=== PATIENT | male | born 1965 | race Two or more races ===

== ENCOUNTER → 2024-01-21 | Outpatient (BNVA) | payer MEDICAID, SELFPAY | END | disposition home or self-care (01) | PROVIDERS: PCP Nurse Practitioner Family; Referring Provider Nurse Practitioner Family; Visit Provider Urology | DX: C64.1 Malignant neoplasm of right kidney, except renal pelvis (principal); Z90.5 Acquired absence of kidney; N40.1 Benign prostatic hyperplasia with lower urinary tract symptoms; N13.8 Other obstructive and reflux uropathy; I10 Essential (primary) hypertension | CPT/HCPCS: 81003; 99212; G0463 ==

== ENCOUNTER → 2024-03-05 | Outpatient (CLI) | payer MEDICAID, SELFPAY ==
--- NOTE | 2024-03-05 15:00 | XR_ITS ---
Examination: CT chest, without intravenous contrast. Sagittal and coronal 2-D reconstructions. Exam date and time: March 05, 2024 1805 hours INDICATIONS: Diagnosis renal cell carcinoma September 2023, PET CT scan December 19, 2023 small pulmonary nodules left upper lobe CTDI:vol (mGy) 12.2 DLP: (mGycm) 470 Technique: Multiple 3.0 mm axial sections of the chest to been obtained. Bone and lung density settings are obtained. Sagittal and coronal 2-D reconstructions have been obtained. Low dose protocols were performed. One or more of the following dose reduction techniques were used; automated exposure control, adjustment of the mA and/or KV according to patient size, use of iterative reconstruction technique. Findings: No thoracic aortic aneurysm dilatation Pulmonary artery segments are not enlarged No paratracheal tracheobronchial or bronchopulmonary adenopathy 3 mm pulmonary nodule left upper lobe image 106 3 mm pulmonary nodule left upper lobe image 4 2 mm pulmonary nodule left upper lobe image 150 3 mm pulmonary nodule right upper lobe image 158 3 mm pulmonary nodule right midlung image 158 3 mm pulmonary nodule left lower lobe image 257 No lobar pneumonia or pulmonary edema No visualized liver or splenic lesion Contracted gallbladder Kidneys partially visualized no hydronephrosis No pancreatic mass Moderate osteopenia with moderate thoracic spondylosis IMPRESSION: Multiple subcentimeter pulmonary nodules as above, with this study as baseline recommend continued 6 month follow-up CT chest without contrast
== END | disposition home or self-care (01) ==
PROVIDERS: PCP Internal Medicine; Referring Provider Internal Medicine; Visit Provider Internal Medicine
DX: R91.8 Other nonspecific abnormal finding of lung field (principal)
CPT/HCPCS: 71250

== ENCOUNTER → 2024-03-19 | Outpatient (CLI) | payer MEDICAID, SELFPAY ==
--- NOTE | 2024-03-19 14:00 | XR_ITS ---
Examination: Abdomen sonogram, complete Date and time of exam: March 19, 2024 1454 hours INDICATIONS: History removal right kidney mass one month ago, left flank pain one month, hematuria. Technique: Multiple real-time grayscale transabdominal sonographic images of the abdomen have been obtained. Findings: Normal gallbladder Normal common bile duct 0.3 cm Pancreatic head 3.1 cm Aorta not enlarged Hepatomegaly 18.5 cm smooth contour Normal hepatopedal portal venous flow Patent IVC Right kidney 12.4 x 7.1 x 7.0 cm cortex 1.6 cm Left kidney 12.5 x 5.7 x 5.9 cm cortex 2.4 cm Multiple left renal cysts, the largest lower pole 5.8 cm Bilateral renal parenchymal scar formation No solid renal mass lesion Spleen 10.9 cm IMPRESSION: No solid renal mass lesion noted
--- NOTE | 2024-03-19 14:30 | XR_ITS ---
Examination: Retroperitoneal ultrasound, complete Technique: Multiple high resolution grayscale images of the retroperitoneum obtained, including kidneys and bladder. Exam date and time:March 19, 2024 1436 hours INDICATIONS: Left flank pain and hematuria beginning one month ago FINDINGS: Right kidney 13.7 x 6.5 x 6.6 cm renal cortex 1.7 cm Left kidney 12.2 x 7.0 x 5.2 cm in the cortex 2.0 cm Multiple benign left renal cysts, the largest 5.6 cm Moderate bilateral renal parenchymal scar formation No bladder mass or bladder calculi Bladder prevoid volume 108 cc postvoid volume 60 cc Prostate volume 29.5 cc no prostate nodules IMPRESSION: No solid renal mass lesion currently Moderate bilateral renal parenchymal scar formation
== END | disposition home or self-care (01) ==
LOC: CDIM 13:42
PROVIDERS: PCP Nurse Practitioner Family; Referring Provider Nurse Practitioner Family; Visit Provider Nurse Practitioner Family
DX: N28.89 Other specified disorders of kidney and ureter (principal); R10.32 Left lower quadrant pain
CPT/HCPCS: 76700; 76770

== ENCOUNTER 2024-03-25 11:36 | Outpatient (RCR) | payer MEDICAID, SELFPAY ==
--- NOTE | 2024-03-10 13:35 | CTCCONSULT_ITS ---
Patient: WON PRIDE : 1965 MR#: [id number] Page 2 of 2 CONSULTATION NOTE DATE OF CONSULTATION: 03/10/2024 NAME: WON PRIDE ACCOUNT: [id number] : 1965 AGE: 58 REFERRING PHYSICIAN: Twila Joe MD PRIMARY PHYSICIAN: Twila Joe MD REASON FOR VISIT: Establishing care ONCOLOGY HISTORY: DIAGNOSIS: Renal cell cancer DATE OF DIAGNOSIS: 08/27/2023 STAGE/TNM: Unknown TREATMENT HISTORY: Care?Plan Start?Date Cycle Day Intent HISTORY OF PRESENT ILLNESS: 58-year-old male is here to establish care. Patient had ultrasound in August 2023 which showed renal m ass in the right kidney lower pole. MRI showed 2.8 cm enhancing mass. As per family he has undergon e partial nephrectomy PET CT scan done on 12/19/2023 showed small pulmonary nodules left upper lobe l argest 4 mm recommended high-resolution CT CT scan done on 12/24/2023 of abdomen and pelvis showed no lymphadenopathy CT scan in February 2024 showed multiple lung nodules all less than 5 mm in bilateral lungs I do not have final pathology report. Operative report reviewed showed 3 cm anterior midpole right r enal mass partially exophytic and abutting the collecting system and therefore central 1 renal artery 1 renal vein. 85% of the kidney was preserved. OTHER MEDICAL HISTORY/CONDITIONS: ASTHMA? HYPERTENSION RIGHT KIDNEY MASS PARTIAL NEPHRECTOMY 12/2023 NASAL SURGERY HERNIA SURGERY 2016 LEFT KNEE SX 2015 FAMILY HISTORY: Father:?DENIES Mother:?DENIES Sibling:?DENIES Children: DENIES, HAS 2 SONS AND 1 DAUGHTER Cancer History:?RIGHT KIDNEY MASS REMOVED 12/2023 SOCIAL HISTORY: Occupational?History:?[employer] Education?Level:?College Graduate, 2 year degree Marital?Status:? Tobacco?Use?Years:?15 Tobacco Use:?STOPPED SMOKING 20 YEARS AGO, 1/2 PACK CIGARETTES PER DAY ETOH?Use:?OCCASIONAL?ALCOHOL Drug?Note:?DENIES Social History Note:?LIVES WITH AND KIDS MEDICATIONS: 1. lisinopril-hydrochlorothiazide - 20-25 mg 1 tab Daily 2. Spiriva Respimat - 1.25 mcg/actuation 2 Puff(s) Daily 3. Symbicort - 160-4.5 mcg/actuation 2 Puff(s) Daily 4. Xhance - 93 mcg/actuation 2 spray As directed Medications Last Reconciled by Earlene Alves MD on 03/10/2024 ALLERGIES: No Known Allergies REVIEW OF SYSTEMS: A complete 14-point review of systems was performed and is negative except as noted in interval histo ry. PHYSICAL EXAMINATION: VITAL SIGNS: Temperature?98.6, B/P?169/93, Height?65?inches, Oxygen?Saturation?98% Weight?200?lbs PAIN: 0 - No pain ECOG Performance Status: 0 - Asymptomatic and fully active GENERAL APPEARANCE: Appears well, in no apparent distress, appropriately interactive. HEENT: Normocephalic, no temporal wasting, normal conjunctiva, no scleral icterus, normal hearing, li ps without lesions, neck normal range of motion. CARDIOVASCULAR: Not assessed. PULMONARY: Normal respiratory effort, no respiratory distress or use of accessory muscles, speaking i n full sentences, no tachypnea. EXTREMITIES: No pedal edema or cyanosis. SKIN: Normal skin appearance. NEUROLOGIC: Alert and oriented x4. PSHYCHIATRIC: Appropriate affect, mood normal, behavior normal, intact thought and speech. LABORATORY DATA: I have personally reviewed and interpreted each of the patient?s relevant lab tests, abnormal finding s are below: Date ASSESSMENT/PLAN: Right renal tumor s/p resection Will need final pathology report to see the margins as well as the type of tumor At this point I am not clear whether lung nodules are new or or they were present before Will try to obtain CT scan from [facility] at the initial visit to see if the new nodule seen on e scan here are new or order Remote history of smoking Brain MRI RTC in 2 weeks with records ORDERS: Please obtain records RETURN TO CLINIC: 2 weeks BILLING AND COMPLIANCE: I reviewed external records from providers outside my specialty as summarized above. I spent a total of 50 minutes on this patient?s care on the day of their visit excluding time spent related to any bi lled procedures. This time includes time spent with the patient as well as time spent documenting in the medical record, reviewing patients records and tests, obtaining history, placing orders, communi cating with other healthcare professionals, counseling the patient, family or caregiver, and/or care coordination for the diagnoses above. Electronically Signed by: Zeferino Slaughter MD T: 1:33 PM CC: PCP: Twila Joe Referring: Twila Joe This document was completed utilizing speech recognition software. Grammatical errors, random word in sertions, pronoun errors, and incomplete sentences are an occasional consequence of this system due t o software limitations, ambient noise, and hardware issues. Any formal questions or concerns about th e content, text or information contained within the body of this dictation should be directly address ed to the provider for clarification.
--- NOTE | 2024-03-26 13:24 | CTCFLWUP_ITS ---
Patient: WON PRIDE : 1965 Page 2 of 2 FOLLOW UP NOTE DATE OF SERVICE: 03/25/2024 NAME: WON PRIDE ACCOUNT: [id number] : 1965 AGE: 58 INTERVAL HISTORY: Patient is here to discuss pathology report ONCOLOGY HISTORY:?[facility] Oncology Hx? DIAGNOSIS: Renal cell cancer DATE OF DIAGNOSIS: 08/27/2023 STAGE/TNM: Stage III T3 N0 M0 TREATMENT HISTORY: Care?Plan Start?Date Cycle Day Intent HISTORY OF PRESENT ILLNESS: 58-year-old male is here to establish care. Patient had ultrasound in August 2023 which showed renal mass in the right kidney lower pole. MRI showed 2.8 cm enhancing mass. As per family he has undergone partial nephrectomy PET CT scan done on 12/19/2023 showed small pulmonary nodules left upper lobe largest 4 mm recommended high-resolution CT CT scan done on 12/24/2023 of abdomen and pelvis showed no lymphadenopathy CT scan in February 2024 showed multiple lung nodules all less than 5 mm in bilateral lungs I do not have final pathology report. Operative report reviewed showed 3 cm anterior midpole right renal mass partially exophytic and abutting the collecting system and therefore central 1 renal artery 1 renal vein. 85% of the kidney was preserved. OTHER MEDICAL HISTORY/CONDITIONS: ASTHMA HYPERTENSION RIGHT KIDNEY MASS PARTIAL NEPHRECTOMY 12/2023 NASAL SURGERY HERNIA SURGERY 2016 LEFT KNEE SX 2014 FAMILY HISTORY: Father:?DENIES Mother:?DENIES Sibling:?DENIES Children: DENIES, HAS 2 SONS AND 1 DAUGHTER Cancer History:?RIGHT KIDNEY MASS REMOVED 12/2023 SOCIAL HISTORY: Occupational?History:?[employer] Education?Level:?College Graduate, 2 year degree Marital?Status:? Tobacco?Use?Years:?15 Tobacco Use:?STOPPED SMOKING 20 YEARS AGO, 1/2 PACK CIGARETTES PER DAY ETOH?Use:?OCCASIONAL?ALCOHOL Drug?Note:?DENIES Social History Note:?LIVES WITH AND KIDS MEDICATIONS: 1. amoxicillin - 500 mg 1 Capsule As directed 2. lisinopril-hydrochlorothiazide - 20-25 mg 1 tab Daily 3. pantoprazole - 40 mg 1 Daily 4. Spiriva Respimat - 1.25 mcg/actuation 2 Puff(s) Daily 5. Symbicort - 160-4.5 mcg/actuation 2 Puff(s) Daily 6. Xhance - 93 mcg/actuation 2 spray As directed?Palabra Meds? Medications Last Reconciled by Domonique Duque MA on 03/25/2024 ALLERGIES: No Known Allergies REVIEW OF SYSTEMS: A complete 14-point review of systems was performed and is negative except as noted in interval history. PHYSICAL EXAMINATION:?Miguelina PE? VITAL SIGNS: Temperature?98.6, B/P?136/83, Oxygen?Saturation?98% Weight?202?lbs (Change?since?03/10/24:?2?lbs) PAIN: 0 - No pain ECOG Performance Status: 0 - Asymptomatic and fully active GENERAL APPEARANCE: Appears well, in no apparent distress, appropriately interactive. HEENT: Normocephalic, no temporal wasting, normal conjunctiva, no scleral icterus, normal hearing, lips without lesions, neck normal range of motion. CARDIOVASCULAR: Not assessed. PULMONARY: Normal respiratory effort, no respiratory distress or use of accessory muscles, speaking in full sentences, no tachypnea. EXTREMITIES: No pedal edema or cyanosis. SKIN: Normal skin appearance. NEUROLOGIC: Alert and oriented x4. PSHYCHIATRIC: Appropriate affect, mood normal, behavior normal, intact thought and speech. LABORATORY DATA: I have personally reviewed and interpreted each of the patient?s relevant lab tests, abnormal findings are below: Date ASSESSMENT/PLAN:?Miguelina Slaughter Assessment/Plan? 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 BILLING AND COMPLIANCE: I reviewed external records from providers outside my specialty as summarized above. I spent a total of 50 minutes on this patient?s care on the day of their visit excluding time spent related to any billed procedures. This time includes time spent with the patient as well as time spent documenting in the medical record, reviewing patients records and tests, obtaining history, placing orders, communicating with other healthcare professionals, counseling the patient, family or caregiver, and/or care coordination for the diagnoses above. Electronically Signed by: Zeferino Slaughter MD T: 1:22 PM CC: PCP: Twila Joe Referring: Twila Joe This document was completed utilizing speech recognition software. Grammatical errors, random word insertions, pronoun errors, and incomplete sentences are an occasional consequence of this system due to software limitations, ambient noise, and hardware issues. Any formal questions or concerns about the content, text or information contained within the body of this dictation should be directly addressed to the provider for clarification.
== END 2024-03-27 23:59 | disposition home or self-care (01) ==
LOC: SCTC 11:36
PROVIDERS: PCP Nurse Practitioner Family; Referring Provider Nurse Practitioner Family; Visit Provider Internal Medicine Hematology & Oncology
DX: C64.1 Malignant neoplasm of right kidney, except renal pelvis (principal); Z90.5 Acquired absence of kidney; Z87.891 Personal history of nicotine dependence; R91.8 Other nonspecific abnormal finding of lung field
CPT/HCPCS: 99212; 99213; G0463

== ENCOUNTER 2024-04-16 10:05 | Outpatient (RCR) | payer MEDICAID, SELFPAY ==
[2024-04-16 10:40] LABS: Basophils # (Auto) 0.1 Thou/mm3 (0.0-0.2); Basophils % (Auto) 1 % (0-2.5); Eosinophils # (Auto) 0.3 Thou/mm3 (0.0-0.5); Eosinophils % (Auto) 5 % (0-10); Hemoglobin 15.6 g/dL (13.5-16.0); Immature Granulocytes % (Auto) 0 % (0-0); Immature Granulocytes Auto 0.01 Thou/mm3 (0.00-0.00); Lymphocytes # (Auto) 2.3 Thou/mm3 (1.0-4.8); Lymphocytes % (Auto) 33 % (10-50); Mean Corpuscular HGB Conc 33.2 g/dl (31.0-37.0); Mean Corpuscular Hemoglobin 26.5 pg (25.0-35.0); Mean Corpuscular Volume 80 fL (80-100); Monocytes # (Auto) 0.5 Thou/mm3 (0.0-0.8); Monocytes % (Auto) 7 % (0-12); Neutrophils # (Auto) 3.7 Thou/mm3 (1.8-7.7); Neutrophils % (Auto) 54 % (37-80); Nucleated Red Blood Cell % 0 /100 WBC (0); Platelet Count 321 Thou/mm3 (140-440); RDW Standard Deviation 39.7 fL (35.1-43.9); Red Blood Count 5.88 Miln/mm3 (4.50-5.90); White Blood Count 6.9 Thou/mm3 (3.8-10.6)
[2024-04-16 10:59] LABS: Alanine Aminotransferase 15 U/L (10-49); Albumin, Serum 4.3 gm/dL (3.5-5.0); Albumin/Globulin Ratio 1.8 (1.2-2.2); Alkaline Phosphatase 59 U/L (46-116); Anion Gap 9 (7-16); Aspartate Amino Transferase 18 U/L (0-34); BUN/Creatinine Ratio 18 Ratio (12-20); Bilirubin,Total 0.7 mg/dL (0.3-1.2); Blood Urea Nitrogen 18 mg/dL (9-23); Calcium 9.5 mg/dL (8.3-10.6); Calcium (Corrected) 9.5 mg/dL (8.5-10.1); Carbon Dioxide 26.4 mMol/L (20.0-31.0); Chloride 105 mMol/L (98-107); Free T4 (Free Thyroxine) 1.31 ng/dL (0.89-1.76); Globulin 2.4 gm/dL (2.3-3.5); Glucose 129 mg/dL (74-106); Osmolality,Calculated 283 (275-295); Potassium 3.6 mMol/L (3.4-5.1); Sodium 140 mMol/L (136-145); Thyroid Stimulating Hormone 0.55 uIU/mL (0.55-4.78); Total Protein 6.7 gm/dL (5.7-8.2); eGFR > 60 See Note
--- NOTE | 2024-04-26 11:55 | CTCFLWUP_ITS ---
Patient: WON PRIDE : 1965 Page 2 of 4 FOLLOW UP NOTE DATE OF SERVICE: 04/07/2024 NAME: WON PRIDE ACCOUNT: [id number] : 1965 AGE: 59 INTERVAL HISTORY: Patient is here to discuss pathology report ONCOLOGY HISTORY:?[facility]one[facility] Oncology Hx? DIAGNOSIS: Renal cell cancer DATE OF DIAGNOSIS: 08/27/2023 STAGE/TNM: Stage III T3 N0 M0 TREATMENT HISTORY: Care?Plan Start?Date Cycle Day Intent KEYTRUDA?200 04/16/2024 1 21 Curative?(adjuvant) HISTORY OF PRESENT ILLNESS: 59-year-old male is here to establish care. Patient had ultrasound in August 2023 which showed renal mass in the right kidney lower pole. MRI showed 2.8 cm enhancing mass. As per family he has undergone partial nephrectomy PET CT scan done on 12/19/2023 showed small pulmonary nodules left upper lobe largest 4 mm recommended high-resolution CT CT scan done on 12/24/2023 of abdomen and pelvis showed no lymphadenopathy CT scan in February 2024 showed multiple lung nodules all less than 5 mm in bilateral lungs I do not have final pathology report. Operative report reviewed showed 3 cm anterior midpole right renal mass partially exophytic and abutting the collecting system and therefore central 1 renal artery 1 renal vein. 85% of the kidney was preserved. OTHER MEDICAL HISTORY/CONDITIONS: ASTHMA HYPERTENSION RIGHT KIDNEY MASS PARTIAL NEPHRECTOMY 12/2023 NASAL SURGERY HERNIA SURGERY 2016 LEFT KNEE SX 2014 FAMILY HISTORY: Father:?DENIES Mother:?DENIES Sibling:?DENIES Children: DENIES, HAS 2 SONS AND 1 DAUGHTER Cancer History:?RIGHT KIDNEY MASS REMOVED 12/2023 SOCIAL HISTORY: Occupational?History:?[employer] Education?Level:?College Graduate, 2 year degree Marital?Status:? Tobacco?Use?Years:?15 Tobacco Use:?STOPPED SMOKING 20 YEARS AGO, 1/2 PACK CIGARETTES PER DAY ETOH?Use:?OCCASIONAL?ALCOHOL Drug?Note:?DENIES Social History Note:?LIVES WITH AND KIDS MEDICATIONS: 1. amoxicillin - 500 mg 1 Capsule As directed 2. lisinopril-hydrochlorothiazide - 20-25 mg 1 tab Daily 3. pantoprazole - 40 mg 1 Daily 4. Spiriva Respimat - 1.25 mcg/actuation 2 Puff(s) Daily 5. Symbicort - 160-4.5 mcg/actuation 2 Puff(s) Daily 6. Xhance - 93 mcg/actuation 2 spray As directed?Palabra Meds? Medications Last Reconciled by Domonique Duque MA on 04/07/2024 ALLERGIES: No Known Allergies REVIEW OF SYSTEMS: A complete 14-point review of systems was performed and is negative except as noted in interval history. PHYSICAL EXAMINATION:?CloneBlock PE? VITAL SIGNS: Temperature?98.6, B/P?133/87, Oxygen?Saturation?95% Weight?198?lbs (Change?since?03/25/24:?-4?lbs) PAIN: 0 - No pain GENERAL APPEARANCE: Appears well, in no apparent distress, appropriately interactive. HEENT: Normocephalic, no temporal wasting, normal conjunctiva, no scleral icterus, normal hearing, lips without lesions, neck normal range of motion. CARDIOVASCULAR: Not assessed. PULMONARY: Normal respiratory effort, no respiratory distress or use of accessory muscles, speaking in full sentences, no tachypnea. EXTREMITIES: No pedal edema or cyanosis. SKIN: Normal skin appearance. NEUROLOGIC: Alert and oriented x4. PSHYCHIATRIC: Appropriate affect, mood normal, behavior normal, intact thought and speech. LABORATORY DATA: I have personally reviewed and interpreted each of the patient?s relevant lab tests, abnormal findings are below: Date 04/16/24 ??GLUCOSE,RANDOM?(mg/dL) 129?H ??BLOOD?UREA?NITROGEN?(mg/dL) 18 ??CREATININE?(mg/dL) 1.00 ??SODIUM?(mmol/L) 140 ??POTASSIUM?(mmol/L) 3.6 ??CHLORIDE?(mmol/L) 105 ??CrCl?(CandG)?(ml/min) 83.27 ??AST/SGOT?(Unit/L) 18 ??ALT/SGPT?(Unit/L) 15 ??ALKALINE?PHOSPHATASE?(Unit/L) 59 ??BILIRUBIN,?TOTAL?(mg/dL) 0.7 ??PROTEIN?TOTAL?(gm/dl) 6.7 ??ALBUMIN,?SERUM?(gm/dl) 4.3 ??GLOBULIN?(gm/dl) 2.4 ??ALBUMIN/GLOBULIN?RATIO 1.8 ??CALCIUM,?SERUM?(mg/dL) 9.5 ??CALCIUM?SERUM?(CORRECTED)?(mg/dL) 9.5 ASSESSMENT/PLAN:?Miguelina Slaughter Assessment/Plan? 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 BILLING AND COMPLIANCE: I reviewed external records from providers outside my specialty as summarized above. I spent a total of 50 minutes on this patient?s care on the day of their visit excluding time spent related to any billed procedures. This time includes time spent with the patient as well as time spent documenting in the medical record, reviewing patients records and tests, obtaining history, placing orders, communicating with other healthcare professionals, counseling the patient, family or caregiver, and/or care coordination for the diagnoses above. Electronically Signed by: Zeferino Slaughter MD T: 11:52 AM CC: PCP: Twila Jeo Referring: Twila Joe This document was completed utilizing speech recognition software. Grammatical errors, random word insertions, pronoun errors, and incomplete sentences are an occasional consequence of this system due to software limitations, ambient noise, and hardware issues. Any formal questions or concerns about the content, text or information contained within the body of this dictation should be directly addressed to the provider for clarification.
== END 2024-04-24 23:59 | disposition home or self-care (01) ==
LOC: SCTC 10:05
PROVIDERS: PCP Nurse Practitioner Family; Referring Provider Nurse Practitioner Family; Visit Provider Internal Medicine Hematology & Oncology
DX: Z51.11 Encounter for antineoplastic chemotherapy (principal); C64.1 Malignant neoplasm of right kidney, except renal pelvis; Z90.5 Acquired absence of kidney
CPT/HCPCS: 80053; 84439; 84443; 85025; 96413; 99212; A4216; J7040; J7050; J9271; G0463

== ENCOUNTER → 2024-04-21 | Outpatient (CLI) | payer MEDICAID, SELFPAY ==
--- NOTE | 2024-04-21 14:00 | XR_ITS ---
Examination: CT chest with intravenous contrast CT abdomen with intravenous contrast CT pelvis with intravenous contrast CT chest without intravenous contrast CTA abdomen without intravenous contrast CT pelvis without intravenous contrast 2-D coronal and sagittal reconstructions Time of exam: April 21, 2024 1515 hrs. Indications: Diagnosis malignant neoplasm right kidney September 2023 CTDI: vol (mGy) : 25.99 DLP: (mGycm): 14.99 Technique: Multiple axial images of the chest, abdomen and pelvis with intravenous contrast, 3.0 mm slice thickness. Images obtained pre-post intravenous injection Isovue 370 60 cc. 2-D sagittal and coronal reconstructions. Low dose protocols were performed. One or more of the following dose reduction techniques were used; automated exposure control, adjustment of the mA and/or KV according to patient size, use of iterative reconstruction technique. Findings: No thoracic aortic aneurysm dilatation No pulmonary artery emboli No paratracheal tracheobronchial or bronchopulmonary adenopathy Bilateral pulmonary nodules again noted 1 pulmonary nodules in the left upper lobe measures 6 mm on the current study compared to 4 mm on the prior exam 1 pulmonary nodules in the right lower lobe measures 4 mm compared to 3 mm on the prior study No visualized liver or splenic lesion Contracted gallbladder No pancreatic mass Post right nephrectomy no solid enhancing renal lesions No interval abdominal or pelvic lymphadenopathy Urinary bladder intact Osseous structures intact Impression: Bilateral pulmonary nodules again noted 2 of the pulmonary nodules appear to have slightly increased in size compared to the CT chest March 05, 2024, recommend 3 month follow-up CT chest without contrast
== END | disposition home or self-care (01) ==
PROVIDERS: PCP Physician Assistant; Referring Provider Internal Medicine Hematology & Oncology; Visit Provider Internal Medicine Hematology & Oncology
DX: R91.8 Other nonspecific abnormal finding of lung field (principal); C64.1 Malignant neoplasm of right kidney, except renal pelvis
CPT/HCPCS: 71270; 74178; A4649; Q9967

== ENCOUNTER → 2024-05-14 | Outpatient (CLI) | payer MEDICAID, SELFPAY ==
--- NOTE | 2024-05-14 15:12 | XR_ITS ---
Examination: PA lateral chest 2 views TECHNIQUE: Upright PA lateral chest 2 views Exam date and time: May 14, 2024 1534 hours INDICATIONS: Shortness of breath wheezing beginning 2 weeks ago FINDINGS: Minor subsegmental atelectasis left base No lobar pneumonia or pulmonary edema Moderate thoracic spondylosis IMPRESSION: No pneumonia or pulmonary edema
== END | disposition home or self-care (01) ==
PROVIDERS: PCP Nurse Practitioner Family; Referring Provider Nurse Practitioner Family; Visit Provider Nurse Practitioner Family
DX: R06.02 Shortness of breath (principal); R06.2 Wheezing; C64.1 Malignant neoplasm of right kidney, except renal pelvis
CPT/HCPCS: 71046

== ENCOUNTER 2024-05-25 13:03 | Outpatient (RCR) | payer MEDICAID, SELFPAY | END 2024-05-25 23:59 | disposition home or self-care (01) | LOC: SCTC 13:03 | PROVIDERS: PCP Physician Assistant; Referring Provider Physician Assistant; Visit Provider Internal Medicine Hematology & Oncology | DX: C64.1 Malignant neoplasm of right kidney, except renal pelvis (principal); Z53.8 Procedure and treatment not carried out for other reasons | CPT/HCPCS: 84439; 84443; J7050; J9271 ==

== ENCOUNTER 2024-05-25 13:57 | Emergency (ER) | payer MEDICAID, SELFPAY ==
[2024-05-25] VITALS (8 sets, daily range): BP systolic 147–155; BP diastolic 84–105; PULSE 64–74; RESP 12–21; TEMP 36.8–36.9; O2SAT 90–95; BMI 32.5
--- NOTE | 2024-05-25 14:15 | EKG_ITS ---
[facility] Test Date: 2024-05-25 Pat Name: WON PRIDE Department: Room: - Gender: Male Case Management Social Worker: : 1965 Requested By: Alesha Cota Order Number: [id number] Reading MD: Alesha Cota Measurements Intervals [place] Rate: 60 P: 49 [place]: 172 QRS: -2 QRSD: 83 T: 53 QT: 391 QTc: 393 Interpretive Statements SINUS RHYTHM No previous ECG available for comparison /store/S0/[id number]/ecg/[id number]
--- NOTE | 2024-05-25 14:15 | PD.EDSOB ---
ED SOB =RME/HPI General Chief Complaint: Shortness of Breath/Dyspnea Stated Complaint: SOB WITH CHEST PAIN AND COUGH X3WK Time Seen by Provider: 05/25/24 14:14 Arrival date/time: 05/25/24 13:57 RME / HPI RME / HPI Narrative: 59 y/o male with H/o stage III papillary renal cell carcinoma, hypertension, asthma and SHx large mass removal of the kidney presents to ED transferred from [facility] c/o constant shortness of breath, mild chest pain, and coughing up clear mucus x 2 weeks. Patient reports symptoms are worse this week. Patient is currently undergoing immunotherapy. Tumor removal performed 01/14/2024. Denies swelling or any modifying factors. No other concerns or complaints expressed at this time. Related Data Home Medications ?Medication ?Instructions ?Recorded ?Confirmed albuterol sulfate 90 mcg/actuation 2 puff inhalation QDAY PRN 11/21/23 01/21/24 aerosol inhaler budesonide-formoterol HFA 160 2 puff inhalation QDAY 11/21/23 01/21/24 mcg-4.5 mcg/actuation aerosol inhaler (Symbicort) lisinopril 20 1 tab PO QDAY 11/21/23 01/21/24 mg-hydrochlorothiazide 25 mg tablet Previous Rx's ?Medication ?Instructions ?Recorded azithromycin 250 mg tablet 250 mg PO QDAY 4 days #4 tabs 05/25/24 Allergies Allergy/AdvReac Type Severity Reaction Status Date / Time No Known Allergies Allergy Verified 05/25/24 13:59 Review of Systems Review of Systems Systems Reviewed: All systems reviewed, normal except as documented Narrative Review of Systems: Gen: No fever, no chills, no weight loss EYES: No discharge, no visual changes, no pain HEENT: No ear pain, no congestion, no sore throat PULM: + Shortness of breath, + cough, + coughing up clear phlegm CV: + Mild chest pain, no dyspnea on exertion, no palpitations GI: No nausea, no vomiting, no diarrhea, no pain, no constipation : No frequency, no urgency,? no dysuria Musc/skel: No joint pain, no back pain Skin: No rash? 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 alert and oriented x 4, well-developed, well-nourished, no acute distress HEENT: Normocephalic, atraumatic; pupils equal, round, reactive to light; EOMI; mucous membranes pink, moist; oropharynx clear NECK: Supple LUNGS: + Mild wheezes in LI, Right lung clear, no rales BL, no rhonchi BL HEART: Regular rate, regular rhythm; normal S1, S2; no murmurs ABDOMEN: non distended; normal BS;? soft, no tenderness, no guarding, no rebound; no masses, no organomegaly, no hernia?? BACK:? No CVA tenderness EXTREMITIES:? atraumatic; no edema NEUROLOGIC: awake; alert and oriented x4; cranial nerves II-XII grossly intact; no focal sensory or motor deficits PSYCHIATRIC:? appropriate mood and affect SKIN: warm, dry, normal color; no rashes Course Quality Measures none Orders Category Date Time Status Tool Grinder Operator NOW Care 05/25/24 14:15 Active EKG (ED ONLY) *Do not use* NOW Care 05/25/24 14:15 Completed EKG (ED Only) Stat Exams 05/25/24 14:15 Draft XR chest 1V portable Stat Exams 05/25/24 14:15 Completed B-Type Natriuretic Peptide Stat Lab 05/25/24 14:31 Completed CBC Stat Lab 05/25/24 14:31 Completed Comprehensive Metabolic Panel Stat Lab 05/25/24 14:31 Completed D-Dimer Stat Lab 05/25/24 14:31 Completed Lipase Stat Lab 05/25/24 14:31 Completed Magnesium Stat Lab 05/25/24 14:31 Completed Partial Thromboplastin Time Stat Lab 05/25/24 14:31 Completed Prothrombin Time with INR Stat Lab 05/25/24 14:31 Completed Troponin I Stat Lab 05/25/24 14:31 Completed Albuterol/Ipratr Rt Serina [Duoneb Rt Serina] Med 05/25/24 15:02 Discontinued 3 ml INH X1 ONE Azithromycin Po [Zithromax PO] Med 05/25/24 16:37 Discontinued 500 mg PO X1 ONE Vital Signs Vital signs: Vital Signs Temperature 98.2 F 05/25/24 14:15 Pulse Rate 70 05/25/24 14:15 Respiratory Rate 18 05/25/24 14:15 Blood Pressure 153/84 H 05/25/24 14:15 Pulse Oximetry (%) 90 L 05/25/24 14:15 Oxygen Delivery Method Room Air 05/25/24 14:15 Shortness of Breath / Dyspnea MDM Narrative MDM Narrative:: Augusta Garza, am scribing for and in the presence of Dr. Linda. Patient data External records reviewed:: [facility] previous records (Reviewed most recent oncology follow-up note from 04/26/[address] Zeferino Slaughter.) Clinical information provided by:: patient and family (Daughter) Social determinants that could affect healthcare access:: none Patient has the following chronic illnesses:: Stage III papillary renal cell carcinoma, hypertension, asthma How is presenting disease/condition affected by chronic disease/condition?: exacerbated by Evaluation data The following diagnostics were reviewed and interpreted by me:: lab results, radiology exam(s) and EKG tracing(s) (EKG#1: EKG at 1701 hours. Interpreted by me: sinus rhythm, rate 60, no acute ischemic changes) Lab and/or radiology exams considered but not ordered:: None Interpretation Summary: Procedure(s): XR chest 1V portable Accession Number(s): [id number] cc: Nick Villafana MD; Alesha Linda MD~ Examination: AP chest single view Technique one AP portable upright chest single view Exam date and time: May 25, 2024 1421 hours INDICATIONS: Chest pain today FINDINGS: Normal heart size Accentuation basilar bronchovascular markings. No lobar pneumonia Prominent osteopenia IMPRESSION: Basilar bronchitis pattern Dictated By: Nick Villafana MD Medications / Prescriptions Medications or Prescriptions considered but not ordered:: None Medication administrations:: Medication Administration History Discontinued Medications Albuterol/Ipratropium (Albuterol/Ipratropium (Duoneb) Rt Serina 3 Ml Nebu) 3 ml INH X1 ONE Stop: 05/25/24 15:03 Last Admin: 05/25/24 15:25 Dose: 3 ml Documented By: KOKO Azithromycin (Azithromycin 250 Mg Tablet) 500 mg PO X1 ONE Stop: 05/25/24 16:38 Last Admin: 05/25/24 16:48 Dose: 500 mg Documented By: ALLISON See above. Consultations Consultation(s) initiated? (list below): No Diagnosis Shortness of Breath Differential Diagnosis: community acquired pneumonia, asthma with exacerbation and pulmonary embolism Most likely diagnosis given after review of the tests above:: Bronchitis Admission Indicated Admission indicated?: not indicated Admission Request Was there a request for admission?: No Disposition Plan Disposition Plan: Discharge Discharge Attestation Discharge Attestation: The patient and all family members were given an opportunity to ask questions and understood the discharge instructions. Discharge instructions specifically effects, indications for sooner follow up or return to the emergency department, and the expected course of current diagnosis. Patient condition: Stable Discharge Plan Plan Patient Disposition: HOME (Self Care) Prescriptions/Referrals Prescriptions/Med Rec: New azithromycin 250 mg tablet 250 mg PO QDAY 4 Days Qty: 4 0RF Rx Instructions: start on day 2 of therapy No Action lisinopril-hydrochlorothiazide 20-25 mg tablet 1 tab PO QDAY albuterol sulfate 90 mcg/actuation HFA aerosol inhaler 2 puff inhalation QDAY PRN budesonide-formoterol [Symbicort] 160-4.5 mcg/actuation HFA aerosol inhaler 2 puff inhalation QDAY Referrals: Ramsey Roman MD [Primary Care Provider] - In 1 week Problem List Clinical Impression: Bronchitis Patient/Caregiver Discharge Instructions Education Materials: ED Bronchitis with Wheezing (Adult) Print Language: Lao Stand Alone Forms: Marya Award Info., Patient Portal Info Letter
[2024-05-25 15:10] LABS: Basophils # (Auto) 0.1 Thou/mm3 (0.0-0.2); Basophils % (Auto) 1 % (0-2.5); Eosinophils # (Auto) 0.9 Thou/mm3 (0.0-0.5); Eosinophils % (Auto) 9 % (0-10); Hematocrit 51.5 % (41.0-53.0); Hemoglobin 16.4 g/dL (13.5-16.0); Immature Granulocytes % (Auto) 0 % (0-0); Immature Granulocytes Auto 0.02 Thou/mm3 (0.00-0.00); Lymphocytes # (Auto) 2.3 Thou/mm3 (1.0-4.8); Lymphocytes % (Auto) 23 % (10-50); Mean Corpuscular HGB Conc 31.8 g/dl (31.0-37.0); Mean Corpuscular Hemoglobin 26.1 pg (25.0-35.0); Mean Corpuscular Volume 82 fL (80-100); Monocytes # (Auto) 0.9 Thou/mm3 (0.0-0.8); Monocytes % (Auto) 9 % (0-12); Neutrophils # (Auto) 5.9 Thou/mm3 (1.8-7.7); Neutrophils % (Auto) 59 % (37-80); Nucleated Red Blood Cell % 0 /100 WBC (0); Platelet Count 328 Thou/mm3 (140-440); RDW Standard Deviation 40.7 fL (35.1-43.9); Red Blood Count 6.28 Miln/mm3 (4.50-5.90); White Blood Count 10.1 Thou/mm3 (3.8-10.6)
[2024-05-25 15:19] LABS: Partial Thromboplastin Time 25.8 Seconds (22.0-36.0); Prothrombin Time 10.9 Seconds (9.0-12.2)
[2024-05-25 15:23] LABS: B-Type Natriuretic Peptide 26 pg/mL (0-100)
--- NOTE | 2024-05-25 15:24 | PC.NURSE ---
patient able to void in urinal (500ml)
[2024-05-25] MEDS: ALBUTEROL/IPRATROPIUM (Duoneb) RT SOL 3 ML NEBU INH (15:25)
[2024-05-25 15:29] LABS: Alanine Aminotransferase 18 U/L (10-49); Albumin, Serum 4.5 gm/dL (3.5-5.0); Albumin/Globulin Ratio 1.7 (1.2-2.2); Alkaline Phosphatase 75 U/L (46-116); Anion Gap 9 (7-16); Aspartate Amino Transferase 19 U/L (0-34); BUN/Creatinine Ratio 17 Ratio (12-20); Bilirubin,Total 0.7 mg/dL (0.3-1.2); Blood Urea Nitrogen 17 mg/dL (9-23); Calcium 9.6 mg/dL (8.3-10.6); Calcium (Corrected) 9.6 mg/dL (8.5-10.1); Chloride 106 mMol/L (98-107); Estimated Creatinine Clearance 82.5 mL/min (>60); Globulin 2.6 gm/dL (2.3-3.5); Glucose 96 mg/dL (74-106); Lipase 42 U/L (12-53); Osmolality,Calculated 282 (275-295); Potassium 3.9 mMol/L (3.4-5.1); Sodium 141 mMol/L (136-145); Total Protein 7.1 gm/dL (5.7-8.2); Troponin I < 0.002 ng/mL (0.0-0.045); eGFR > 60 See Note
[2024-05-25 16:17] LABS: D-Dimer < 250 ng/mL (<600)
[2024-05-25] MEDS: AZITHROMYCIN 250 MG TABLET 500 MG PO (16:48)
== END 2024-05-25 17:10 | disposition home or self-care (01) ==
PROVIDERS: Emergency Provider Emergency Medicine; PCP Family Medicine
DX: J40 Bronchitis, not specified as acute or chronic (principal); I10 Essential (primary) hypertension; Z79.51 Long term (current) use of inhaled steroids
CPT/HCPCS: 36415; 71045; 80053; 83690; 83735; 83880; 84484; 85025; 85379; 85610; 85730; 93005; 94640; 99283; A9270

== ENCOUNTER → 2024-06-19 | Outpatient (BNVA) | payer MEDICAID, SELFPAY | END | disposition home or self-care (01) | PROVIDERS: PCP Nurse Practitioner Family; Referring Provider Nurse Practitioner Family; Visit Provider Urology | DX: C64.1 Malignant neoplasm of right kidney, except renal pelvis (principal); N40.1 Benign prostatic hyperplasia with lower urinary tract symptoms; N13.8 Other obstructive and reflux uropathy; I10 Essential (primary) hypertension; Z90.5 Acquired absence of kidney; E66.9 Obesity, unspecified; Z68.32 Body mass index [BMI] 32.0-32.9, adult | CPT/HCPCS: 81003; 99212; G0463 ==

== ENCOUNTER 2024-06-22 13:35 | Outpatient (RCR) | payer MEDICAID, SELFPAY ==
[2024-06-08 14:59] LABS: Basophils # (Auto) 0.1 Thou/mm3 (0.0-0.2); Basophils % (Auto) 1 % (0-2.5); Eosinophils # (Auto) 0.5 Thou/mm3 (0.0-0.5); Eosinophils % (Auto) 4 % (0-10); Hematocrit 47.4 % (41.0-53.0); Hemoglobin 15.7 g/dL (13.5-16.0); Immature Granulocytes % (Auto) 0 % (0-0); Immature Granulocytes Auto 0.02 Thou/mm3 (0.00-0.00); Lymphocytes # (Auto) 2.8 Thou/mm3 (1.0-4.8); Lymphocytes % (Auto) 25 % (10-50); Mean Corpuscular HGB Conc 33.1 g/dl (31.0-37.0); Mean Corpuscular Volume 82 fL (80-100); Monocytes % (Auto) 9 % (0-12); Neutrophils # (Auto) 6.9 Thou/mm3 (1.8-7.7); Neutrophils % (Auto) 61 % (37-80); Nucleated Red Blood Cell % 0 /100 WBC (0); Platelet Count 329 Thou/mm3 (140-440); RDW Standard Deviation 39.8 fL (35.1-43.9); Red Blood Count 5.81 Miln/mm3 (4.50-5.90); White Blood Count 11.3 Thou/mm3 (3.8-10.6)
[2024-06-08 15:17] LABS: Alanine Aminotransferase 13 U/L (10-49); Albumin, Serum 3.9 gm/dL (3.5-5.0); Alkaline Phosphatase 64 U/L (46-116); Anion Gap 7 (7-16); Aspartate Amino Transferase 14 U/L (0-34); BUN/Creatinine Ratio 23 Ratio (12-20); Bilirubin,Total 0.4 mg/dL (0.3-1.2); Blood Urea Nitrogen 23 mg/dL (9-23); Calcium 8.5 mg/dL (8.3-10.6); Calcium (Corrected) 8.6 mg/dL (8.5-10.1); Carbon Dioxide 25.9 mMol/L (20.0-31.0); Chloride 110 mMol/L (98-107); Glucose 143 mg/dL (74-106); Osmolality,Calculated 290 (275-295); Potassium 3.7 mMol/L (3.4-5.1); Sodium 143 mMol/L (136-145); Thyroid Stimulating Hormone 0.01 uIU/mL (0.55-4.78); Total Protein 5.9 gm/dL (5.7-8.2); eGFR > 60 See Note
[2024-06-08 16:44] LABS: Free T3 3.8 pg/mL (2.3-4.2)
[2024-06-08 18:28] LABS: Free T4 (Free Thyroxine) 1.54 ng/dL (0.89-1.76); Thyroid Stimulating Hormone 0.01 uIU/mL (0.55-4.78)
--- NOTE | 2024-06-23 01:13 | CTCFLWUP_ITS ---
Patient: WON PRIDE : 1965 Page 4 of 6 FOLLOW UP NOTE DATE OF SERVICE: 06/22/2024 NAME: WON PRIDE ACCOUNT: [id number] : 1965 AGE: 59 INTERVAL HISTORY: Xin Francis presents for follow-up of malignant neoplasm of the right kidney and is currently undergoing immunotherapy treatment. The patient reports overall good health but admits to occasional alcohol use, which is advised against during treatment due to potential liver complications. The patient is instructed to avoid alcohol, smoking, marijuana, and Tylenol for 12 months and to use alternatives like coffee or nasima for pain management. Immunotherapy sessions are scheduled every 6 weeks, and an upcoming CT scan is planned to monitor lung nodules related to the kidney cancer. Follow-up is scheduled in 3 months. Chief Complaint Follow-up for history of malignant neoplasm of right kidney History of Present Illness Yolanda Francis presents for follow-up of malignant neoplasm of the right kidney. The patient reports overall good health status and is currently undergoing immunotherapy treatment for kidney cancer. The patient admits to occasional alcohol use, having consumed a drink yesterday. It is noted that alcohol consumption during immunotherapy treatment can potentially lead to elevated liver enzymes and complications with the treatment. The patient has been advised to avoid alcohol, smoking, marijuana, and Tylenol for 12 months during the course of treatment. For pain management, the patient is instructed to use Tylenol or Aleve only if necessary, or to try alternatives such as turmeric or nasima. The patient's immunotherapy treatment is ongoing, with sessions scheduled every 3 weeks. There is mention of exposure to smoking areas, which is not ideal but considered manageable. The patient has an upcoming CT scan to monitor lung nodules related to the kidney cancer. Medical History - Malignant neoplasm of right kidney - Lung nodules related to kidney cancer Medications and Supplements - Immunotherapy - Administered every 6 weeks - Tylenol - Advised to avoid for 12 months during treatment - Aleve - Can be used for pain if necessary - Prednisone - High doses may be required if liver failure occurs Social History - Substance Use: Occasional alcohol use (had a drink yesterday), advised to avoid alcohol for 12 months during treatment. Advised to avoid smoking, marijuana, and Tylenol during treatment. Exposure to smoking areas noted. - Diet: Advised to try coffee or nasima for pain management before using medication. ONCOLOGY HISTORY: DIAGNOSIS: Renal cell cancer DATE OF DIAGNOSIS: 08/27/2023 STAGE/TNM: Stage III T3 N0 M0 TREATMENT HISTORY: Care?Plan Start?Date Cycle Day Intent KEYTRUDA?200 04/16/2024 1 21 Curative?(adjuvant) HISTORY OF PRESENT ILLNESS: 59-year-old male is here to establish care. Patient had ultrasound in August 2023 which showed renal mass in the right kidney lower pole. MRI showed 2.8 cm enhancing mass. As per family he has undergone partial nephrectomy PET CT scan done on 12/19/2023 showed small pulmonary nodules left upper lobe largest 4 mm recommended high-resolution CT CT scan done on 12/24/2023 of abdomen and pelvis showed no lymphadenopathy CT scan in February 2024 showed multiple lung nodules all less than 5 mm in bilateral lungs I do not have final pathology report. Operative report reviewed showed 3 cm anterior midpole right renal mass partially exophytic and abutting the collecting system and therefore central 1 renal artery 1 renal vein. 85% of the kidney was preserved. OTHER MEDICAL HISTORY/CONDITIONS: ASTHMA HYPERTENSION RIGHT KIDNEY MASS PARTIAL NEPHRECTOMY 12/2023 NASAL SURGERY HERNIA SURGERY 2016 LEFT KNEE SX 2015 FAMILY HISTORY: Father:?DENIES Mother:?DENIES Sibling:?DENIES Children: DENIES, HAS 2 SONS AND 1 DAUGHTER Cancer History:?RIGHT KIDNEY MASS REMOVED 12/2023 SOCIAL HISTORY: Occupational?History:?[employer] Education?Level:?College Graduate, 2 year degree Marital?Status:? Tobacco?Use?Years:?15 Tobacco Use:?STOPPED SMOKING 20 YEARS AGO, 1/2 PACK CIGARETTES PER DAY ETOH?Use:?OCCASIONAL?ALCOHOL Drug?Note:?DENIES Social History Note:?LIVES WITH AND KIDS MEDICATIONS: 1. albuterol - 90 mcg/actuation As directed 2. lisinopril-hydrochlorothiazide - 20-25 mg 1 tab Daily 3. Promethazine VC Plain - 6.25-5 mg/5 mL As directed 4. Spiriva Respimat - 1.25 mcg/actuation 2 Puff(s) Daily 5. Symbicort - 160-4.5 mcg/actuation 2 Puff(s) Daily 6. Xhance - 93 mcg/actuation 2 spray As directed Medications Last Reconciled by Obdulia Avendano MA on 06/22/2024 ALLERGIES: No Known Allergies REVIEW OF SYSTEMS: A complete 14-point review of systems was performed and is negative except as noted in interval history. PHYSICAL EXAMINATION: VITAL SIGNS: Temperature?99.3, B/P?130/83, Oxygen?Saturation?95% Weight?195?lbs (Change?since?06/11/24:?-0.2?lbs) PAIN: 0 - No pain ECOG Performance Status: 0 - Asymptomatic and fully active GENERAL APPEARANCE: Appears well, in no apparent distress, appropriately interactive. HEENT: Normocephalic, no temporal wasting, normal conjunctiva, no scleral icterus, normal hearing, lips without lesions, neck normal range of motion. CARDIOVASCULAR: Not assessed. PULMONARY: Normal respiratory effort, no respiratory distress or use of accessory muscles, speaking in full sentences, no tachypnea. EXTREMITIES: No pedal edema or cyanosis. SKIN: Normal skin appearance. NEUROLOGIC: Alert and oriented x4. PSHYCHIATRIC: Appropriate affect, mood normal, behavior normal, intact thought and speech. LABORATORY DATA: I have personally reviewed and interpreted each of the patient?s relevant lab tests, abnormal findings are below: Date 05/25/24 06/08/24 ??WHITE?BLOOD?COUNT?(Thou/mm3) 10.1 11.3?H ??RED?BLOOD?COUNT?(Miln/mm3) 6.28?H 5.81 ??HEMOGLOBIN?(gm/dl) 16.4?H 15.7 ??HEMATOCRIT?(%) 51.5 47.4 ??PLATELET?COUNT?(Thou/mm3) 328 329 ??NEUTROPHILS?%,?AUTO?(%) 59 61 ??LYMPH?%,?AUTO?(%) 23 25 ??NEUTROPHILS,?AUTO?(Thou/mm3) 5.9 6.9 ??GLUCOSE,RANDOM?(mg/dL) 96 143?H ??BLOOD?UREA?NITROGEN?(mg/dL) 17 23 ??CREATININE?(mg/dL) 1.00 1.00 ??SODIUM?(mmol/L) 141 143 ??POTASSIUM?(mmol/L) 3.9 3.7 ??CHLORIDE?(mmol/L) 106 110?H ??CrCl?(CandG)?(ml/min) 82.36 82.48 ??AST/SGOT?(Unit/L) 19 14 ??ALT/SGPT?(Unit/L) 18 13 ??ALKALINE?PHOSPHATASE?(Unit/L) 75 64 ??BILIRUBIN,?TOTAL?(mg/dL) 0.7 0.4 ??PROTEIN?TOTAL?(gm/dl) 7.1 5.9 ??ALBUMIN,?SERUM?(gm/dl) 4.5 3.9 ??GLOBULIN?(gm/dl) 2.6 2.0?L ??ALBUMIN/GLOBULIN?RATIO 1.7 2.0 ??CALCIUM,?SERUM?(mg/dL) 9.6 8.5 ??CALCIUM?SERUM?(CORRECTED)?(mg/dL) 9.6 8.6 ASSESSMENT/PLAN: Right renal tumor s/p resection Papillary tumor extending beyond the renal fascia Neurovascular invasion present No lymph node involvement remote history of smoking pembrolizumab as adjuvant therapy for 1 year Yolanda Francis presents for follow-up of malignant neoplasm of right kidney, currently undergoing immunotherapy treatment. Malignant neoplasm of right kidney Assessment: Patient is doing well on current immunotherapy regimen. Immunotherapy stimulates the immune system to attack cancer cells, causing hypervigilance. There is a concern that inflammation in the body can cause liver enzymes to rise, potentially leading to the cessation of immunotherapy. Alcohol or other toxins can trigger the immune system to attack the liver, possibly resulting in liver failure and requiring high doses of prednisone and steroids. Patient reported having a drink yesterday, which is not recommended during treatment. Plan: - Continue immunotherapy treatment every 6 weeks - Avoid alcohol, smoking, marijuana, and Tylenol for 12 months during treatment - For pain management: - Use Tylenol or Aleve only if necessary - Try coffee or nasima as alternative pain relief options - Upcoming CT scan for lung nodules related to kidney cancer - No CT scan for the brain at this time; consider in 6 months - Follow-up in 3 months CBC and CMP ordered for today CBC CMP Keytruda, TSH T4 ORDERS: Order # Description [id number] CBC + Comprehensive Metabolic Panel [id number] Lab Appointment [id number] Follow Up Appointment [id number] CBC + Comprehensive Metabolic Panel [id number] Lab Appointment [id number] Follow Up Appointment [id number] CBC + Comprehensive Metabolic Panel [id number] Lab Appointment [id number] Follow Up Appointment [id number] CBC + Comprehensive Metabolic Panel [id number] Lab Appointment [id number] Follow Up Appointment RETURN TO CLINIC: 3months BILLING AND COMPLIANCE: I reviewed external records from providers outside my specialty as summarized above. I spent a total of 50 minutes on this patient?s care on the day of their visit excluding time spent related to any billed procedures. This time includes time spent with the patient as well as time spent documenting in the medical record, reviewing patients records and tests, obtaining history, placing orders, communicating with other healthcare professionals, counseling the patient, family or caregiver, and/or care coordination for the diagnoses above. Electronically Signed by: {Object.Sanct_ID*PnP.NameFL@M}, {Object.Sanct_ID*PnP.Suffix@U} D: {Object.Sanct_Date} T: {Object.Sanct_Time} CC: PCP: Ramsey Roman Referring: Ramsey Roman This document was completed utilizing speech recognition software. Grammatical errors, random word insertions, pronoun errors, and incomplete sentences are an occasional consequence of this system due to software limitations, ambient noise, and hardware issues. Any formal questions or concerns about the content, text or information contained within the body of this dictation should be directly addressed to the provider for clarification.
== END 2024-06-24 23:59 | disposition home or self-care (01) ==
LOC: SCTC 13:35
PROVIDERS: PCP Family Medicine; Referring Provider Family Medicine; Visit Provider Internal Medicine Hematology & Oncology
DX: Z51.11 Encounter for antineoplastic chemotherapy (principal); C64.1 Malignant neoplasm of right kidney, except renal pelvis
CPT/HCPCS: 36415; 80053; 84439; 84443; 84481; 85025; 96413; 99212; J7050; J9271; G0463

== ENCOUNTER → 2024-06-25 | Outpatient (CLI) | payer MEDICAID, SELFPAY ==
--- NOTE | 2024-06-25 14:30 | XR_ITS ---
Examination: CT chest, without intravenous contrast. Sagittal and coronal 2-D reconstructions. Exam date and time: June 25, [address] chest April 21, 2024 bilateral pulmonary nodules, 2 of the pulmonary nodules increased in size compared to the CT chest March 05, 2024 CTDI:vol (mGy) 11.3 DLP: (mGycm) 428 Technique: Multiple 3.0 mm axial sections of the chest to been obtained. Bone and lung density settings are obtained. Sagittal and coronal 2-D reconstructions have been obtained. Low dose protocols were performed. One or more of the following dose reduction techniques were used; automated exposure control, adjustment of the mA and/or KV according to patient size, use of iterative reconstruction technique. Findings: No thoracic aortic aneurysmal dilatation Right brachial bronchial lymph node measures 9 mm compared with 5 mm on April 21, 2024 Bilateral pulmonary nodules again depicted stable in appearance No new pulmonary nodules No interval pneumonia or pulmonary edema No visualized liver or splenic lesion IMPRESSION: Right tracheobronchial lymph node measures 9 mm on the current study compared to [address] chest April 21, 2024, recommend continued 6 month follow-up CT chest without contrast No change in bilateral pulmonary nodules, no new pulmonary nodules
== END | disposition home or self-care (01) ==
PROVIDERS: PCP Internal Medicine; Referring Provider Internal Medicine; Visit Provider Internal Medicine
DX: R91.8 Other nonspecific abnormal finding of lung field (principal); J45.909 Unspecified asthma, uncomplicated
CPT/HCPCS: 71250

== ENCOUNTER 2024-07-13 07:59 | Outpatient (RCR) | payer MEDICAID, SELFPAY ==
[2024-07-06 15:32] LABS: Basophils # (Auto) 0.1 Thou/mm3 (0.0-0.2); Basophils % (Auto) 1 % (0-2.5); Eosinophils # (Auto) 0.4 Thou/mm3 (0.0-0.5); Eosinophils % (Auto) 4 % (0-10); Hematocrit 47.5 % (41.0-53.0); Hemoglobin 15.9 g/dL (13.5-16.0); Immature Granulocytes % (Auto) 0 % (0-0); Immature Granulocytes Auto 0.03 Thou/mm3 (0.00-0.00); Lymphocytes # (Auto) 2.9 Thou/mm3 (1.0-4.8); Lymphocytes % (Auto) 28 % (10-50); Mean Corpuscular HGB Conc 33.5 g/dl (31.0-37.0); Mean Corpuscular Hemoglobin 26.6 pg (25.0-35.0); Mean Corpuscular Volume 80 fL (80-100); Monocytes % (Auto) 10 % (0-12); Neutrophils # (Auto) 5.7 Thou/mm3 (1.8-7.7); Neutrophils % (Auto) 56 % (37-80); Nucleated Red Blood Cell % 0 /100 WBC (0); Platelet Count 358 Thou/mm3 (140-440); Red Blood Count 5.97 Miln/mm3 (4.50-5.90); White Blood Count 10.1 Thou/mm3 (3.8-10.6)
[2024-07-06 15:54] LABS: Alanine Aminotransferase 16 U/L (10-49); Albumin, Serum 4.1 gm/dL (3.5-5.0); Albumin/Globulin Ratio 1.8 (1.2-2.2); Alkaline Phosphatase 62 U/L (46-116); Anion Gap 8 (7-16); Aspartate Amino Transferase 17 U/L (0-34); BUN/Creatinine Ratio 11 Ratio (12-20); Bilirubin,Total 0.7 mg/dL (0.3-1.2); Blood Urea Nitrogen 11 mg/dL (9-23); Calcium 8.8 mg/dL (8.3-10.6); Calcium (Corrected) 8.8 mg/dL (8.5-10.1); Chloride 106 mMol/L (98-107); Free T4 (Free Thyroxine) 1.37 ng/dL (0.89-1.76); Globulin 2.3 gm/dL (2.3-3.5); Glucose 98 mg/dL (74-106); Osmolality,Calculated 280 (275-295); Sodium 141 mMol/L (136-145); Thyroid Stimulating Hormone 0.11 uIU/mL (0.55-4.78); Total Protein 6.4 gm/dL (5.7-8.2); eGFR > 60 See Note
[2024-07-13 08:33] LABS: Basophils # (Auto) 0.1 Thou/mm3 (0.0-0.2); Basophils % (Auto) 1 % (0-2.5); Eosinophils # (Auto) 0.4 Thou/mm3 (0.0-0.5); Eosinophils % (Auto) 5 % (0-10); Hematocrit 47.2 % (41.0-53.0); Hemoglobin 15.7 g/dL (13.5-16.0); Immature Granulocytes % (Auto) 1 % (0-0); Immature Granulocytes Auto 0.04 Thou/mm3 (0.00-0.00); Lymphocytes # (Auto) 2.4 Thou/mm3 (1.0-4.8); Lymphocytes % (Auto) 30 % (10-50); Mean Corpuscular HGB Conc 33.3 g/dl (31.0-37.0); Mean Corpuscular Hemoglobin 27.1 pg (25.0-35.0); Mean Corpuscular Volume 81 fL (80-100); Monocytes # (Auto) 0.7 Thou/mm3 (0.0-0.8); Monocytes % (Auto) 9 % (0-12); Neutrophils # (Auto) 4.4 Thou/mm3 (1.8-7.7); Neutrophils % (Auto) 55 % (37-80); Nucleated Red Blood Cell % 0 /100 WBC (0); Platelet Count 283 Thou/mm3 (140-440); White Blood Count 8.1 Thou/mm3 (3.8-10.6)
[2024-07-13 08:56] LABS: Alanine Aminotransferase 15 U/L (10-49); Albumin/Globulin Ratio 1.7 (1.2-2.2); Alkaline Phosphatase 58 U/L (46-116); Anion Gap 8 (7-16); Aspartate Amino Transferase 16 U/L (0-34); BUN/Creatinine Ratio 27 Ratio (12-20); Bilirubin,Total 0.9 mg/dL (0.3-1.2); Blood Urea Nitrogen 27 mg/dL (9-23); Calcium 8.4 mg/dL (8.3-10.6); Calcium (Corrected) 8.4 mg/dL (8.5-10.1); Carbon Dioxide 25.1 mMol/L (20.0-31.0); Chloride 109 mMol/L (98-107); Free T4 (Free Thyroxine) 1.43 ng/dL (0.89-1.76); Globulin 2.3 gm/dL (2.3-3.5); Glucose 102 mg/dL (74-106); Osmolality,Calculated 288 (275-295); Potassium 3.9 mMol/L (3.4-5.1); Sodium 142 mMol/L (136-145); Total Protein 6.3 gm/dL (5.7-8.2); eGFR > 60 See Note
== END 2024-07-25 23:59 | disposition home or self-care (01) ==
LOC: SCTC 07:59
PROVIDERS: PCP Internal Medicine; Referring Provider Internal Medicine; Visit Provider Internal Medicine Hematology & Oncology
DX: Z51.11 Encounter for antineoplastic chemotherapy (principal); C64.1 Malignant neoplasm of right kidney, except renal pelvis; R91.8 Other nonspecific abnormal finding of lung field
CPT/HCPCS: 80053; 84439; 84443; 85025; 96413; A4216; J7040; J7050; J9271

== ENCOUNTER 2024-08-03 13:40 | Outpatient (RCR) | payer MEDICAID, SELFPAY ==
[2024-08-03 14:13] LABS: Basophils # (Auto) 0.1 Thou/mm3 (0.0-0.2); Basophils % (Auto) 1 % (0-2.5); Eosinophils # (Auto) 0.7 Thou/mm3 (0.0-0.5); Eosinophils % (Auto) 9 % (0-10); Hematocrit 45.9 % (41.0-53.0); Hemoglobin 15.7 g/dL (13.5-16.0); Immature Granulocytes % (Auto) 0 % (0-0); Immature Granulocytes Auto 0.02 Thou/mm3 (0.00-0.00); Lymphocytes # (Auto) 2.3 Thou/mm3 (1.0-4.8); Lymphocytes % (Auto) 29 % (10-50); Mean Corpuscular HGB Conc 34.2 g/dl (31.0-37.0); Mean Corpuscular Hemoglobin 26.9 pg (25.0-35.0); Mean Corpuscular Volume 79 fL (80-100); Monocytes # (Auto) 0.7 Thou/mm3 (0.0-0.8); Monocytes % (Auto) 8 % (0-12); Neutrophils # (Auto) 4.1 Thou/mm3 (1.8-7.7); Neutrophils % (Auto) 52 % (37-80); Nucleated Red Blood Cell % 0 /100 WBC (0); Platelet Count 327 Thou/mm3 (140-440); RDW Standard Deviation 41.5 fL (35.1-43.9); Red Blood Count 5.84 Miln/mm3 (4.50-5.90); White Blood Count 7.8 Thou/mm3 (3.8-10.6)
[2024-08-03 14:42] LABS: Aspartate Amino Transferase 21 U/L (0-34)
[2024-08-03 14:46] LABS: Alanine Aminotransferase 18 U/L (10-49); Albumin, Serum 4.3 gm/dL (3.5-5.0); Alkaline Phosphatase 57 U/L (46-116); Anion Gap 7 (7-16); BUN/Creatinine Ratio 13 Ratio (12-20); Blood Urea Nitrogen 13 mg/dL (9-23); Calcium 9.2 mg/dL (8.3-10.6); Calcium (Corrected) 9.2 mg/dL (8.5-10.1); Chloride 108 mMol/L (98-107); Free T3 3.6 pg/mL (2.3-4.2); Globulin 2.1 gm/dL (2.3-3.5); Glucose 83 mg/dL (74-106); Osmolality,Calculated 282 (275-295); Potassium 3.9 mMol/L (3.4-5.1); Sodium 142 mMol/L (136-145); Thyroid Stimulating Hormone 0.05 uIU/mL (0.55-4.78); Total Protein 6.4 gm/dL (5.7-8.2); eGFR > 60 See Note
== END 2024-08-24 23:59 | disposition home or self-care (01) ==
LOC: SCTC 13:40
PROVIDERS: PCP Student in an Organized Health Care Education/Training Program; Referring Provider Internal Medicine; Visit Provider Internal Medicine Hematology & Oncology
DX: Z51.11 Encounter for antineoplastic chemotherapy (principal); C64.1 Malignant neoplasm of right kidney, except renal pelvis; Z90.5 Acquired absence of kidney
CPT/HCPCS: 36591; 80053; 84443; 84450; 84481; 85025; 96413; J7050; J9271

== ENCOUNTER → 2024-09-03 | Outpatient (CLI) | payer MEDICAID, SELFPAY ==
--- NOTE | 2024-09-03 | XR_ITS ---
Examination: PA lateral chest 2 views TECHNIQUE: Upright PA lateral chest 2 views Date and time: September 03, 2024 1153 hours INDICATIONS: Coughing shortness of breath beginning 3 weeks ago. FINDINGS: Mild parenchymal disease in the lingular segment Normal heart size Moderate osteopenia IMPRESSION: Scarring versus pneumonia in the lingular segment left upper lobe, clinical correlation advised
== END | disposition home or self-care (01) ==
PROVIDERS: PCP Internal Medicine; Referring Provider Internal Medicine; Visit Provider Internal Medicine
DX: R91.8 Other nonspecific abnormal finding of lung field (principal); R05.3 Chronic cough
CPT/HCPCS: 71046

== ENCOUNTER → 2024-09-17 | Outpatient (CLI) | payer MEDICAID, SELFPAY ==
--- NOTE | 2024-09-17 14:00 | XR_ITS ---
Examination: Retroperitoneal ultrasound, complete Technique: Multiple high resolution grayscale images of the retroperitoneum obtained, including kidneys and bladder. Exam date and time:September 17, 2024 1410 hours INDICATIONS: Left flank pain one month, history renal cell carcinoma post partial right nephrectomy December 2023 FINDINGS: Right kidney 11.3 cm cortex 1.2 cm Lower pole 7 mm cyst Left kidney 13.2 cm cortex 2.0 cm Upper pole cyst 7.7 cm 1.5 cm lower pole cyst 1.7 cm Contracted urinary bladder No prostatomegaly IMPRESSION: Bilateral benign renal cysts Right renal cortical thinning Moderate bilateral renal parenchymal scar formation
--- NOTE | 2024-09-17 14:15 | XR_ITS ---
Examination: PA lateral chest 2 views TECHNIQUE: Upright PA lateral chest 2 views Date and time: September 17, 2024 1435 hours Comparison September 03, 2024 INDICATIONS: Coughing congestion this week. FINDINGS: Minor scarring in the lingular segment No interval pneumonia or pulmonary edema Normal heart size IMPRESSION: No interval pneumonia or pulmonary edema
== END | disposition home or self-care (01) ==
DX: N28.1 Cyst of kidney, acquired (principal); N28.89 Other specified disorders of kidney and ureter; C64.1 Malignant neoplasm of right kidney, except renal pelvis
CPT/HCPCS: 71046; 76770

== ENCOUNTER 2024-09-21 13:06 | Outpatient (RCR) | payer MEDICAID, SELFPAY ==
--- NOTE | 2024-09-14 00:58 | CTCFLWUP_ITS ---
Patient: WON PRIDE : 1965 Page 6 of 7 FOLLOW UP NOTE DATE OF SERVICE: 09/03/2024 NAME: WON PRIDE ACCOUNT: [id number] : 1965 AGE: 59 INTERVAL HISTORY: Yolanda, a male with cancer, presented with worsening wheezing and respiratory distress exacerbated by allergies and possibly related to Keytruda immunotherapy. His history includes asthma, eczema, and multiple allergies. Examination revealed flushing and abnormal lung sounds. Labs showed elevated hemoglobin, WBC count, and eosinophils with low oxygen saturation. Treatment included prednisone 10mg daily, chest X-ray, CT scan, continued inhaler/nebulizer use, therapeutic phlebotomy for polycythemia, and continuation of Keytruda with adjusted frequency. Dupixent was considered for allergies and eczema. Medical History - Malignant neoplasm of right kidney - Lung nodules related to kidney cancer Medications and Supplements - Immunotherapy - Administered every 6 weeks - Tylenol - Advised to avoid for 12 months during treatment - Aleve - Can be used for pain if necessary - Prednisone - High doses may be required if liver failure occurs Social History - Substance Use: Occasional alcohol use (had a drink yesterday), advised to avoid alcohol for 12 months during treatment. Advised to avoid smoking, marijuana, and Tylenol during treatment. Exposure to smoking areas noted. - Diet: Advised to try coffee or nasima for pain management before using medication. ONCOLOGY HISTORY: DIAGNOSIS: Renal cell cancer DATE OF DIAGNOSIS: 08/27/2023 STAGE/TNM: Stage III T3 N0 M0 TREATMENT HISTORY: Care?Plan Start?Date Cycle Day Intent KEYTRUDA?200 04/16/2024 1 21 Curative?(adjuvant) HISTORY OF PRESENT ILLNESS: 59-year-old male is here to establish care. Patient had ultrasound in August 2023 which showed renal mass in the right kidney lower pole. MRI showed 2.8 cm enhancing mass. As per family he has undergone partial nephrectomy PET CT scan done on 12/19/2023 showed small pulmonary nodules left upper lobe largest 4 mm recommended high-resolution CT CT scan done on 12/24/2023 of abdomen and pelvis showed no lymphadenopathy CT scan in February 2024 showed multiple lung nodules all less than 5 mm in bilateral lungs I do not have final pathology report. Operative report reviewed showed 3 cm anterior midpole right renal mass partially exophytic and abutting the collecting system and therefore central 1 renal artery 1 renal vein. 85% of the kidney was preserved. Subjective: Yolanda black presents for follow-up of his ongoing Keytruda treatment and management of respiratory symptoms. The patient reports experiencing wheezing for the past couple of weeks, which has worsened compared to his usual asthma symptoms. He notes that his symptoms are exacerbated when the air conditioning is on, suggesting cold air as a trigger for bronchospasm. The patient has been using his inhalers and nebulizer regularly at home to manage his symptoms. He recently took prednisone when his symptoms flared up, which provided temporary relief, but the symptoms returned after discontinuation. The patient's allergies appear to be contributing to his respiratory distress, particularly given the current flowering season. He reports feeling miserable due to these allergies rather than from the Keytruda treatment. The patient's asthma symptoms have been recurring once or twice a year, but he notes that they have become more frequent and severe since starting Keytruda injections. He experiences these symptoms after each injection, suggesting a possible connection between the immunotherapy and his heightened immune response. The patient's quality of life has been impacted, with his sales & service associate recommending further testing, including a chest x-ray and pulmonary function tests (PFTs). Medical History - Asthma, with exacerbations occurring once or twice a year - Cancer (type not specified) - Eczema - Allergies, multiple Medications and Supplements - Keytruda - Administered every 4 weeks - Patient experiences worsening symptoms after each injection - Inhalers - Used regularly - Nebulizer - Used regularly - Prednisone - Taken when experiencing symptoms - Provided temporary relief - Dupixent - Recommended by doctor, not yet started Allergies - Patient has a lot of allergies (specific allergens not mentioned) - Environmental allergies present (specific allergens not mentioned) Social History - Substance Use: No alcohol, no smoking - Environmental Factors: Patient advised to wear masks due to flowering season exacerbating allergies Review of Systems General: Positive for fatigue. Respiratory: Positive for wheezing, worsening with cold air. Skin: Positive for allergies. Objective: Physical Examination General: Patient appears flushed. Respiratory: Lungs not sounding good on examination. Laboratory, Imaging, and Diagnostic Test Results - Date: Elsa Sep 03 2024 - CBC: - Hemoglobin: High (previous result was very high, current result improved but still elevated) - White blood cell count: High - Eosinophils: High - Oxygen saturation: Low OTHER MEDICAL HISTORY/CONDITIONS: ASTHMA HYPERTENSION RIGHT KIDNEY MASS PARTIAL NEPHRECTOMY 12/2023 NASAL SURGERY HERNIA SURGERY 2016 LEFT KNEE SX 2014 FAMILY HISTORY: Father:?DENIES Mother:?DENIES Sibling:?DENIES Children: DENIES, HAS 2 SONS AND 1 DAUGHTER Cancer History:?RIGHT KIDNEY MASS REMOVED 12/2023 SOCIAL HISTORY: Occupational?History:?[employer] Education?Level:?College Graduate, 2 year degree Marital?Status:? Tobacco?Use?Years:?15 Tobacco Use:?STOPPED SMOKING 20 YEARS AGO, 1/2 PACK CIGARETTES PER DAY ETOH?Use:?OCCASIONAL?ALCOHOL Drug?Note:?DENIES Social History Note:?LIVES WITH AND KIDS MEDICATIONS: 1. albuterol - 90 mcg/actuation As directed 2. azithromycin - 250 mg 2 tab Daily 3. lisinopril-hydrochlorothiazide - 20-25 mg 1 tab Daily 4. montelukast - 10 mg 1 tab Each Day 5. prednisone - 5 mg 2 tab Daily 6. Promethazine VC Plain - 6.25-5 mg/5 mL As directed 7. Spiriva Respimat - 1.25 mcg/actuation 2 Puff(s) Daily 8. Symbicort - 160-4.5 mcg/actuation 2 Puff(s) Daily 9. Xhance - 93 mcg/actuation 2 spray As directed Medications Last Reconciled by Obdulia Meléndez MD on 09/03/2024 ALLERGIES: No Known Allergies REVIEW OF SYSTEMS: A complete 14-point review of systems was performed and is negative except as noted in interval history. PHYSICAL EXAMINATION: VITAL SIGNS: Temperature?98.6, B/P?147/91, Oxygen?Saturation?94% Weight?196?lbs PAIN: None ECOG Performance Status: 1 - Symptomatic; ambulatory; restricted in strenuous activity GENERAL APPEARANCE: Appears well, in no apparent distress, appropriately interactive. HEENT: Normocephalic, no temporal wasting, normal conjunctiva, no scleral icterus, normal hearing, lips without lesions, neck normal range of motion. CARDIOVASCULAR: Not assessed. PULMONARY: Normal respiratory effort, no respiratory distress or use of accessory muscles, speaking in full sentences, no tachypnea. EXTREMITIES: No pedal edema or cyanosis. SKIN: Normal skin appearance. NEUROLOGIC: Alert and oriented x4. PSHYCHIATRIC: Appropriate affect, mood normal, behavior normal, intact thought and speech. LABORATORY DATA: I have personally reviewed and interpreted each of the patient?s relevant lab tests, abnormal findings are below: Date 07/13/24 08/03/24 ??WHITE?BLOOD?COUNT?(Thou/mm3) 8.1 7.8 ??RED?BLOOD?COUNT?(Miln/mm3) 5.80 5.84 ??HEMOGLOBIN?(gm/dl) 15.7 15.7 ??HEMATOCRIT?(%) 47.2 45.9 ??PLATELET?COUNT?(Thou/mm3) 283 327 ??NEUTROPHILS?%,?AUTO?(%) 55 52 ??LYMPH?%,?AUTO?(%) 30 29 ??NEUTROPHILS,?AUTO?(Thou/mm3) 4.4 4.1 ??GLUCOSE,RANDOM?(mg/dL) ? 83 ??BLOOD?UREA?NITROGEN?(mg/dL) ? 13 ??CREATININE?(mg/dL) ? 1.00 ??SODIUM?(mmol/L) ? 142 ??POTASSIUM?(mmol/L) ? 3.9 ??CHLORIDE?(mmol/L) ? 108?H ??CrCl?(CandG)?(ml/min) ? 82.03 ??AST/SGOT?(Unit/L) ? 21 ??ALT/SGPT?(Unit/L) ? 18 ??ALKALINE?PHOSPHATASE?(Unit/L) ? 57 ??BILIRUBIN,?TOTAL?(mg/dL) ? 1.0 ??PROTEIN?TOTAL?(gm/dl) ? 6.4 ??ALBUMIN,?SERUM?(gm/dl) ? 4.3 ??GLOBULIN?(gm/dl) ? 2.1?L ??ALBUMIN/GLOBULIN?RATIO ? 2.0 ??CALCIUM,?SERUM?(mg/dL) ? 9.2 ??CALCIUM?SERUM?(CORRECTED)?(mg/dL) ? 9.2 ASSESSMENT/PLAN: Yolanda black, a patient with a history of cancer, presents with worsening respiratory symptoms including wheezing and low oxygen levels, exacerbated by allergies and possibly related to Keytruda immunotherapy. Assessment: Patient is currently receiving Keytruda immunotherapy for cancer treatment. There is concern that the immunotherapy may be contributing to hypersensitivity reactions and exacerbating respiratory symptoms. The treatment schedule and potential modifications are under consideration. 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 History of asthma with exacerbations once or twice a year, now occurring more frequently after Keytruda injections. High eosinophil count and elevated white blood cell count suggest an allergic component. Symptoms worsen with air conditioning, indicating possible bronchospasm triggered by cold air. Previous use of prednisone provided temporary relief. Pulmonary function tests (PFTs) are scheduled in two weeks. Differential diagnoses include uncontrolled asthma, pneumonia, and Keytruda- induced pneumonitis. Plan: - Prescribe prednisone 10 mg daily for 30 days with one refill - Patient may take 5 mg when feeling better or discontinue once symptoms improve - Order immediate chest X-ray - Order CT scan - Continue current inhaler and nebulizer use - Recommend wearing masks, especially during flowering season - Avoid alcohol and smoking - Consider Dupixent (tablet form) for severe allergies and eczema - Discuss with patient as an alternative to injections - Follow up with sales & service associate for PFT results Polycythemia Assessment: Patient presents with elevated hemoglobin and hematocrit levels, likely secondary to chronic hypoxia from respiratory issues. This compensatory mechanism is causing the blood to become too thick, which may further compromise oxygenation and increase risk of thrombosis. Plan: - Schedule therapeutic phlebotomy to remove 500 mL of blood - To be performed by nursing staff - Educate patient on signs and symptoms of hyperviscosity syndrome ORDERS: Order # Description [id number] CBC + Comprehensive Metabolic Panel [id number] Lab Appointment [id number] Follow Up Appointment [id number] CBC + Comprehensive Metabolic Panel [id number] Lab Appointment [id number] Follow Up Appointment RETURN TO CLINIC: I reviewed the diagnosis, prognosis, and recommended treatment/procedure options with the patient (and/or their legal account maintenance representative), including the potential benefits, risks, side effects and alternative therapies. We also discussed the option of no treatment and the possibility of clinical trial participation, if applicable. All questions were addressed, and they demonstrated understanding. They provided informed consent to proceed with the proposed plan of care. BILLING AND COMPLIANCE: I reviewed external records from providers outside my specialty as summarized above. I spent a total of 50 minutes on this patient?s care on the day of their visit excluding time spent related to any billed procedures. This time includes time spent with the patient as well as time spent documenting in the medical record, reviewing patients records and tests, obtaining history, placing orders, communicating with other healthcare professionals, counseling the patient, family or caregiver, and/or care coordination for the diagnoses above. Electronically Signed by: {Object.Sanct_ID*PnP.NameFL@M}, {Object.Sanct_ID*PnP.Suffix@U} D: {Object.Sanct_Date} T: {Object.Sanct_Time} CC: PCP: Panchito Solitario Referring: Panchito Solitario This document was completed utilizing speech recognition software. Grammatical errors, random word insertions, pronoun errors, and incomplete sentences are an occasional consequence of this system due to software limitations, ambient noise, and hardware issues. Any formal questions or concerns about the content, text or information contained within the body of this dictation should be directly addressed to the provider for clarification.
[2024-09-21 13:47] LABS: Basophils # (Auto) 0.1 Thou/mm3 (0.0-0.2); Basophils % (Auto) 1 % (0-2.5); Eosinophils # (Auto) 0.2 Thou/mm3 (0.0-0.5); Eosinophils % (Auto) 2 % (0-10); Hematocrit 46.6 % (41.0-53.0); Hemoglobin 14.9 g/dL (13.5-16.0); Immature Granulocytes Auto 0.03 Thou/mm3 (0.00-0.00); Lymphocytes # (Auto) 2.2 Thou/mm3 (1.0-4.8); Lymphocytes % (Auto) 21 % (10-50); Mean Corpuscular HGB Conc 32.0 g/dl (31.0-37.0); Mean Corpuscular Hemoglobin 26.8 pg (25.0-35.0); Mean Corpuscular Volume 84 fL (80-100); Monocytes # (Auto) 0.8 Thou/mm3 (0.0-0.8); Monocytes % (Auto) 7 % (0-12); Neutrophils # (Auto) 6.9 Thou/mm3 (1.8-7.7); Neutrophils % (Auto) 68 % (37-80); Nucleated Red Blood Cell # 0.00 Thou/mm3 (0.00-0.00); Nucleated Red Blood Cell % 0 /100 WBC (0); Platelet Count 327 Thou/mm3 (140-440); RDW Standard Deviation 44.2 fL (35.1-43.9); Red Blood Count 5.56 Miln/mm3 (4.50-5.90); White Blood Count 10.1 Thou/mm3 (3.8-10.6)
[2024-09-21 14:39] LABS: Alanine Aminotransferase 15 U/L (10-49); Albumin, Serum 3.9 gm/dL (3.5-5.0); Albumin/Globulin Ratio 1.8 (1.2-2.2); Alkaline Phosphatase 49 U/L (46-116); Anion Gap 10 (7-16); Aspartate Amino Transferase 18 U/L (0-34); BUN/Creatinine Ratio 15 Ratio (12-20); Bilirubin,Total 0.9 mg/dL (0.3-1.2); Blood Urea Nitrogen 15 mg/dL (9-23); Calcium 8.8 mg/dL (8.3-10.6); Calcium (Corrected) 8.9 mg/dL (8.5-10.1); Carbon Dioxide 25.6 mMol/L (20.0-31.0); Chloride 105 mMol/L (98-107); Creatinine (Component) 1.0 mg/dL (0.6-1.3); Free T4 (Free Thyroxine) 1.09 ng/dL (0.89-1.76); Globulin 2.2 gm/dL (2.3-3.5); Glucose 96 mg/dL (74-106); Osmolality,Calculated 282 (275-295); Potassium 3.7 mMol/L (3.4-5.1); Sodium 141 mMol/L (136-145); Thyroid Stimulating Hormone 6.21 uIU/mL (0.55-4.78); Total Protein 6.1 gm/dL (5.7-8.2); eGFR > 60 See Note
== END 2024-09-24 23:59 | disposition home or self-care (01) ==
LOC: SCTC 13:06
PROVIDERS: PCP Student in an Organized Health Care Education/Training Program; Referring Provider Student in an Organized Health Care Education/Training Program; Visit Provider Internal Medicine Hematology & Oncology
DX: Z51.12 Encounter for antineoplastic immunotherapy (principal); C64.1 Malignant neoplasm of right kidney, except renal pelvis; J45.909 Unspecified asthma, uncomplicated; D72.19 Other eosinophilia; D75.1 Secondary polycythemia
CPT/HCPCS: 80053; 84439; 84443; 85025; 96413; 99212; A4216; J7040; J7050; J9271; G0463

== ENCOUNTER → 2024-10-01 | Outpatient (CLI) | payer MEDICAID, SELFPAY ==
--- NOTE | 2024-10-01 13:30 | XR_ITS ---
Examination: CT chest with intravenous contrast CT chest without intravenous contrast 2-D reconstructions Date and time of exam:October 01, 2024 1339 hours Comparison June 25, 2024 INDICATIONS: Diagnosis malignant neoplasm right kidney excepting renal pelvis, one year ago, 9 mm right tracheobronchial lymph node, bilateral pulmonary nodules on CT chest June 25, [address] chest April 21, 2024 CTDI:vol (mGy) 22.3 DLP: (mGycm) 851 Technique: Multiple axial sections of the thorax have been obtained. 3 mm slice thickness, from the hemidiaphragms to above the apices of the lungs. Mediastinal and lung density settings have been obtained. Intravenous contrast administered 60 cc [id number]. Noncontrast images have also been obtained. 2-D sagittal coronal images obtained. Low dose protocols were performed. One or more of the following dose reduction techniques were used; automated exposure control, adjustment of the mA and/or KV according to patient size, use of iterative reconstruction technique. Findings: No thoracic aortic aneurysmal dilatation No pulmonary artery filling defects No current pathologic lymphadenopathy No change in bilateral subcentimeter pulmonary nodules No new pulmonary nodules No visualized liver or splenic lesion. Contracted gallbladder No pancreatic mass Partially visualized posterior left renal cyst, 5.6 cm IMPRESSION: No current mediastinal lymphadenopathy Stable bilateral subcentimeter pulmonary nodules, no new pulmonary nodules
== END | disposition home or self-care (01) ==
LOC: CCTX 12:49
PROVIDERS: Referring Provider Internal Medicine Hematology & Oncology; Visit Provider Internal Medicine Hematology & Oncology
DX: R91.8 Other nonspecific abnormal finding of lung field (principal); C64.1 Malignant neoplasm of right kidney, except renal pelvis
CPT/HCPCS: 71270; A4649; Q9967

== ENCOUNTER 2024-10-20 13:11 | Outpatient (RCR) | payer MEDICAID, SELFPAY ==
[2024-10-20 13:59] LABS: Basophils # (Auto) 0.1 Thou/mm3 (0.0-0.2); Basophils % (Auto) 1 % (0-2.5); Eosinophils # (Auto) 0.8 Thou/mm3 (0.0-0.5); Eosinophils % (Auto) 8 % (0-10); Hematocrit 47.9 % (41.0-53.0); Hemoglobin 15.7 g/dL (13.5-16.0); Immature Granulocytes Auto 0.02 Thou/mm3 (0.00-0.00); Lymphocytes # (Auto) 2.3 Thou/mm3 (1.0-4.8); Lymphocytes % (Auto) 25 % (10-50); Mean Corpuscular HGB Conc 32.8 g/dl (31.0-37.0); Mean Corpuscular Hemoglobin 27.4 pg (25.0-35.0); Mean Corpuscular Volume 84 fL (80-100); Monocytes # (Auto) 0.6 Thou/mm3 (0.0-0.8); Monocytes % (Auto) 7 % (0-12); Neutrophils # (Auto) 5.5 Thou/mm3 (1.8-7.7); Neutrophils % (Auto) 59 % (37-80); Nucleated Red Blood Cell # 0.00 Thou/mm3 (0.00-0.00); Nucleated Red Blood Cell % 0 /100 WBC (0); Platelet Count 329 Thou/mm3 (140-440); RDW Standard Deviation 44.2 fL (35.1-43.9); Red Blood Count 5.73 Miln/mm3 (4.50-5.90); White Blood Count 9.3 Thou/mm3 (3.8-10.6)
[2024-10-20 14:16] LABS: Alanine Aminotransferase 23 U/L (10-49); Albumin, Serum 4.2 gm/dL (3.5-5.0); Albumin/Globulin Ratio 2.0 (1.2-2.2); Alkaline Phosphatase 54 U/L (46-116); Anion Gap 11 (7-16); Aspartate Amino Transferase 41 U/L (0-34); BUN/Creatinine Ratio 16 Ratio (12-20); Bilirubin,Total 0.9 mg/dL (0.3-1.2); Blood Urea Nitrogen 18 mg/dL (9-23); Calcium 9.9 mg/dL (8.3-10.6); Calcium (Corrected) 9.9 mg/dL (8.5-10.1); Carbon Dioxide 25.1 mMol/L (20.0-31.0); Chloride 107 mMol/L (98-107); Creatinine (Component) 1.1 mg/dL (0.6-1.3); Free T4 (Free Thyroxine) 0.96 ng/dL (0.89-1.76); Globulin 2.1 gm/dL (2.3-3.5); Glucose 99 mg/dL (74-106); Osmolality,Calculated 286 (275-295); Potassium 3.9 mMol/L (3.4-5.1); Sodium 143 mMol/L (136-145); Thyroid Stimulating Hormone 8.27 uIU/mL (0.55-4.78); Total Protein 6.3 gm/dL (5.7-8.2); eGFR > 60 See Note
== END 2024-10-25 23:59 | disposition home or self-care (01) ==
LOC: SCTC 13:11
PROVIDERS: Visit Provider Internal Medicine Hematology & Oncology
DX: Z51.12 Encounter for antineoplastic immunotherapy (principal); C64.1 Malignant neoplasm of right kidney, except renal pelvis; J45.901 Unspecified asthma with (acute) exacerbation; D75.1 Secondary polycythemia
CPT/HCPCS: 80053; 84439; 84443; 85025; 96413; J7050; J9271

== ENCOUNTER 2024-11-11 07:21 | Outpatient (CLI) | payer MEDICAID, SELFPAY ==
[2024-11-02 14:40] VITALS: BMI 32.8
[2024-11-10 12:21] LABS: Basophils # (Auto) 0.1 Thou/mm3 (0.0-0.2); Basophils % (Auto) 1 % (0-2.5); Eosinophils # (Auto) 1.2 Thou/mm3 (0.0-0.5); Eosinophils % (Auto) 12 % (0-10); Hematocrit 48.2 % (41.0-53.0); Hemoglobin 16.0 g/dL (13.5-16.0); Immature Granulocytes Auto 0.01 Thou/mm3 (0.00-0.00); Lymphocytes # (Auto) 2.5 Thou/mm3 (1.0-4.8); Lymphocytes % (Auto) 25 % (10-50); Mean Corpuscular HGB Conc 33.2 g/dl (31.0-37.0); Mean Corpuscular Hemoglobin 27.8 pg (25.0-35.0); Mean Corpuscular Volume 84 fL (80-100); Monocytes # (Auto) 0.8 Thou/mm3 (0.0-0.8); Monocytes % (Auto) 8 % (0-12); Neutrophils # (Auto) 5.4 Thou/mm3 (1.8-7.7); Neutrophils % (Auto) 54 % (37-80); Nucleated Red Blood Cell # 0.00 Thou/mm3 (0.00-0.00); Nucleated Red Blood Cell % 0 /100 WBC (0); Platelet Count 359 Thou/mm3 (140-440); RDW Standard Deviation 44.2 fL (35.1-43.9); Red Blood Count 5.75 Miln/mm3 (4.50-5.90); White Blood Count 10.0 Thou/mm3 (3.8-10.6)
[2024-11-10 12:33] LABS: INR 1.0 (0.9-1.3); Partial Thromboplastin Time 27.2 Seconds (22.0-36.0); Prothrombin Time 11.0 Seconds (9.0-12.2)
[2024-11-10 12:34] LABS: Blood Urea Nitrogen 14 mg/dL (9-23); Creatinine (Component) 1.0 mg/dL (0.6-1.3); Estimated Creatinine Clearance 82.7 mL/min (>60); eGFR > 60 See Note
[2024-11-11] VITALS (9 sets, daily range): BP systolic 139–177; BP diastolic 85–100; PULSE 59–68; RESP 12–20; TEMP 37.2–37.7; O2SAT 92–97
--- NOTE | 2024-11-11 08:30 | XR_ITS ---
Examination: CT-guided percutaneous left renal cyst aspiration CT abdomen without intravenous contrast Date and time of procedure: 09/10/2024 0932 hours INDICATIONS: 5.7 cm posterior left renal cyst on CT examination April 21, 2024 as well as on renal sonogram September 17, 2024 Informed consent provided. A timeout was completed verifying correct patient, procedure, site and positioning. Technique: Axial 3 mm sections were obtained for localization of the large left renal cyst Appropriate area is marked. The patient's site was prepped and draped in sterile fashion Maximal sterile barrier technique utilized, including hand hygiene Local anesthesia was obtained with 1% lidocaine. Low dose protocols were performed. One or more of the following dose reduction techniques were used; automated exposure control, adjustment of the mA and/or KV according to patient size, use of iterative reconstruction technique. Utilizing CT fluoroscopic guidance 5 Belgian catheter percutaneously placed in the left renal cyst 100 cc cyst fluid withdrawn and sent to the laboratory for cytologic analysis Patient appears in stable condition during this procedure. At completion of the procedure, the patient is in satisfactory condition. Estimated blood loss 0 cc Complete pathology report to follow. Impression: Successful CT-guided percutaneous aspiration large left renal cyst
[2024-11-11] MEDS: fentaNYL CIT INJ 50 mCg/ML AMP 2ML 75 MCG IVP (10:09)
== END 2024-11-11 11:39 | disposition home or self-care (01) ==
PROVIDERS: Radiology Diagnostic Radiology; Referring Provider Urology; Visit Provider Urology
DX: R79.89 Other specified abnormal findings of blood chemistry (principal); C64.1 Malignant neoplasm of right kidney, except renal pelvis; Z01.812 Encounter for preprocedural laboratory examination
CPT/HCPCS: 50390; 36415; 77012; 82565; 84520; 85025; 85610; 85730; C1729; J3010

== ENCOUNTER 2024-11-24 13:28 | Outpatient (RCR) | payer MEDICAID, SELFPAY ==
[2024-11-24 14:07] LABS: Basophils # (Auto) 0.1 Thou/mm3 (0.0-0.2); Basophils % (Auto) 1 % (0-2.5); Eosinophils # (Auto) 0.7 Thou/mm3 (0.0-0.5); Eosinophils % (Auto) 6 % (0-10); Hematocrit 49.2 % (41.0-53.0); Hemoglobin 16.2 g/dL (13.5-16.0); Immature Granulocytes Auto 0.02 Thou/mm3 (0.00-0.00); Lymphocytes # (Auto) 2.7 Thou/mm3 (1.0-4.8); Lymphocytes % (Auto) 25 % (10-50); Mean Corpuscular HGB Conc 32.9 g/dl (31.0-37.0); Mean Corpuscular Hemoglobin 27.5 pg (25.0-35.0); Mean Corpuscular Volume 84 fL (80-100); Monocytes # (Auto) 0.8 Thou/mm3 (0.0-0.8); Monocytes % (Auto) 8 % (0-12); Neutrophils # (Auto) 6.6 Thou/mm3 (1.8-7.7); Neutrophils % (Auto) 60 % (37-80); Nucleated Red Blood Cell # 0.00 Thou/mm3 (0.00-0.00); Nucleated Red Blood Cell % 0 /100 WBC (0); Platelet Count 357 Thou/mm3 (140-440); RDW Standard Deviation 44.5 fL (35.1-43.9); Red Blood Count 5.89 Miln/mm3 (4.50-5.90); White Blood Count 10.9 Thou/mm3 (3.8-10.6)
[2024-11-24 14:25] LABS: Alanine Aminotransferase 20 U/L (10-49); Albumin, Serum 4.3 gm/dL (3.5-5.0); Albumin/Globulin Ratio 1.7 (1.2-2.2); Alkaline Phosphatase 64 U/L (46-116); Anion Gap 9 (7-16); Aspartate Amino Transferase 21 U/L (0-34); BUN/Creatinine Ratio 12 Ratio (12-20); Bilirubin,Total 0.7 mg/dL (0.3-1.2); Blood Urea Nitrogen 12 mg/dL (9-23); Calcium 9.5 mg/dL (8.3-10.6); Calcium (Corrected) 9.5 mg/dL (8.5-10.1); Carbon Dioxide 25.5 mMol/L (20.0-31.0); Chloride 107 mMol/L (98-107); Creatinine (Component) 1.0 mg/dL (0.6-1.3); Free T4 (Free Thyroxine) 1.04 ng/dL (0.89-1.76); Globulin 2.5 gm/dL (2.3-3.5); Glucose 89 mg/dL (74-106); Osmolality,Calculated 279 (275-295); Potassium 3.4 mMol/L (3.4-5.1); Sodium 141 mMol/L (136-145); Thyroid Stimulating Hormone 13.08 uIU/mL (0.55-4.78); Total Protein 6.8 gm/dL (5.7-8.2); eGFR > 60 See Note
== END 2024-11-24 23:59 | disposition home or self-care (01) ==
LOC: SCTC 13:28
PROVIDERS: Visit Provider Internal Medicine Hematology & Oncology
DX: Z51.12 Encounter for antineoplastic immunotherapy (principal); C64.1 Malignant neoplasm of right kidney, except renal pelvis; J45.909 Unspecified asthma, uncomplicated; D72.829 Elevated white blood cell count, unspecified; D75.1 Secondary polycythemia; Z90.5 Acquired absence of kidney
CPT/HCPCS: 80053; 84439; 84443; 85025; 96413; J3490; J9271

== ENCOUNTER 2024-12-22 13:01 | Outpatient (RCR) | payer MEDICAID, SELFPAY ==
[2024-12-22 13:51] LABS: Basophils # (Auto) 0.1 Thou/mm3 (0.0-0.2); Basophils % (Auto) 1 % (0-2.5); Eosinophils # (Auto) 0.8 Thou/mm3 (0.0-0.5); Eosinophils % (Auto) 9 % (0-10); Hematocrit 48.4 % (41.0-53.0); Hemoglobin 16.1 g/dL (13.5-16.0); Immature Granulocytes Auto 0.02 Thou/mm3 (0.00-0.00); Lymphocytes # (Auto) 2.4 Thou/mm3 (1.0-4.8); Lymphocytes % (Auto) 26 % (10-50); Mean Corpuscular HGB Conc 33.3 g/dl (31.0-37.0); Mean Corpuscular Hemoglobin 27.8 pg (25.0-35.0); Mean Corpuscular Volume 84 fL (80-100); Monocytes # (Auto) 0.7 Thou/mm3 (0.0-0.8); Monocytes % (Auto) 8 % (0-12); Neutrophils # (Auto) 5.3 Thou/mm3 (1.8-7.7); Neutrophils % (Auto) 57 % (37-80); Nucleated Red Blood Cell # 0.00 Thou/mm3 (0.00-0.00); Nucleated Red Blood Cell % 0 /100 WBC (0); Platelet Count 298 Thou/mm3 (140-440); RDW Standard Deviation 43.8 fL (35.1-43.9); Red Blood Count 5.79 Miln/mm3 (4.50-5.90); White Blood Count 9.4 Thou/mm3 (3.8-10.6)
[2024-12-22 14:15] LABS: Alanine Aminotransferase 17 U/L (10-49); Albumin, Serum 4.3 gm/dL (3.5-5.0); Albumin/Globulin Ratio 2.4 (1.2-2.2); Alkaline Phosphatase 53 U/L (46-116); Anion Gap 9 (7-16); Aspartate Amino Transferase 21 U/L (0-34); BUN/Creatinine Ratio 18 Ratio (12-20); Bilirubin,Total 1.1 mg/dL (0.3-1.2); Blood Urea Nitrogen 16 mg/dL (9-23); Calcium 9.0 mg/dL (8.3-10.6); Calcium (Corrected) 9.0 mg/dL (8.5-10.1); Carbon Dioxide 24.6 mMol/L (20.0-31.0); Chloride 108 mMol/L (98-107); Creatinine (Component) 0.9 mg/dL (0.6-1.3); Free T4 (Free Thyroxine) 1.09 ng/dL (0.89-1.76); Globulin 1.8 gm/dL (2.3-3.5); Glucose 100 mg/dL (74-106); Osmolality,Calculated 284 (275-295); Potassium 3.6 mMol/L (3.4-5.1); Sodium 142 mMol/L (136-145); Thyroid Stimulating Hormone 6.25 uIU/mL (0.55-4.78); Total Protein 6.1 gm/dL (5.7-8.2); eGFR > 60 See Note
== END 2024-12-25 23:59 | disposition home or self-care (01) ==
LOC: SCTC 13:01
PROVIDERS: Visit Provider Internal Medicine Hematology & Oncology
DX: Z51.12 Encounter for antineoplastic immunotherapy (principal); C64.1 Malignant neoplasm of right kidney, except renal pelvis; J45.909 Unspecified asthma, uncomplicated; D72.828 Other elevated white blood cell count; D75.1 Secondary polycythemia
CPT/HCPCS: 80053; 84439; 84443; 85025; 96413; J3490; J9271

== ENCOUNTER 2025-01-19 14:09 | Outpatient (RCR) | payer MEDICAID, SELFPAY ==
--- NOTE | 2024-12-30 15:35 | CTCFLWUP_ITS ---
Patient: WON PRIDE : 1965 Page 4 of 6 FOLLOW UP NOTE DATE OF SERVICE: 12/30/2024 NAME: WON PRIDE ACCOUNT: [id number] : 1965 AGE: 59 INTERVAL HISTORY: Yolanda, a male with renal cancer who is on treatment adjuvantly with Keytruda immunotherapy.. His history includes asthma, eczema, and multiple allergies patient is now feeling better. His respiratory symptoms have subsided but gets frequently exacerbated secondary to all allergies. Patient advised to use fluticasone nasal spray and prednisone when he has exacerbation. Patient also noted to have elevated TSH and prescribed levothyroxine 75 mcg. Medical History - Malignant neoplasm of right kidney - Lung nodules related to kidney cancer Medications and Supplements - Immunotherapy - Administered every 6 weeks - Tylenol - Advised to avoid for 12 months during treatment - Aleve - Can be used for pain if necessary - Prednisone - High doses may be required if liver failure occurs Social History - Substance Use: Occasional alcohol use (had a drink yesterday), advised to avoid alcohol for 12 months during treatment. Advised to avoid smoking, marijuana, and Tylenol during treatment. Exposure to smoking areas noted. - Diet: Advised to try coffee or nasima for pain management before using medication. ONCOLOGY HISTORY:?[facility] Hx? DIAGNOSIS: Renal cell cancer DATE OF DIAGNOSIS: 08/27/2023 STAGE/TNM: Stage III T3 N0 M0 TREATMENT HISTORY: Care?Plan Start?Date Cycle Day Intent KEYTRUDA?200 04/16/2024 1 21 Curative?(adjuvant) Pembrolizumab?alone 11/24/2024 1 21 Palliative HISTORY OF PRESENT ILLNESS: 59-year-old male is here to establish care. Patient had ultrasound in August 2023 which showed renal mass in the right kidney lower pole. MRI showed 2.8 cm enhancing mass. As per family he has undergone partial nephrectomy PET CT scan done on 12/19/2023 showed small pulmonary nodules left upper lobe largest 4 mm recommended high-resolution CT CT scan done on 12/24/2023 of abdomen and pelvis showed no lymphadenopathy CT scan in February 2024 showed multiple lung nodules all less than 5 mm in bilateral lungs I do not have final pathology report. Operative report reviewed showed 3 cm anterior midpole right renal mass partially exophytic and abutting the collecting system and therefore central 1 renal artery 1 renal vein. 85% of the kidney was preserved. Subjective: Yolanda black presents for follow-up of his ongoing Keytruda treatment and management of respiratory symptoms. The patient reports experiencing wheezing for the past couple of weeks, which has worsened compared to his usual asthma symptoms. He notes that his symptoms are exacerbated when the air conditioning is on, suggesting cold air as a trigger for bronchospasm. The patient has been using his inhalers and nebulizer regularly at home to manage his symptoms. He recently took prednisone when his symptoms flared up, which provided temporary relief, but the symptoms returned after discontinuation. The patient's allergies appear to be contributing to his respiratory distress, particularly given the current flowering season. He reports feeling miserable due to these allergies rather than from the Keytruda treatment. The patient's asthma symptoms have been recurring once or twice a year, but he notes that they have become more frequent and severe since starting Keytruda injections. He experiences these symptoms after each injection, suggesting a possible connection between the immunotherapy and his heightened immune response. The patient's quality of life has been impacted, with his data network architect recommending further testing, including a chest x-ray and pulmonary function tests (PFTs). Medical History - Asthma, with exacerbations occurring once or twice a year - Cancer (type not specified) - Eczema - Allergies, multiple Medications and Supplements - Keytruda - Administered every 4 weeks - Patient experiences worsening symptoms after each injection - Inhalers - Used regularly - Nebulizer - Used regularly - Prednisone - Taken when experiencing symptoms - Provided temporary relief - Dupixent - Recommended by doctor, not yet started Allergies - Patient has a lot of allergies (specific allergens not mentioned) - Environmental allergies present (specific allergens not mentioned) Social History - Substance Use: No alcohol, no smoking - Environmental Factors: Patient advised to wear masks due to flowering season exacerbating allergies Review of Systems General: Positive for fatigue. Respiratory: Positive for wheezing, worsening with cold air. Skin: Positive for allergies. Objective: Physical Examination General: Patient appears flushed. Respiratory: Lungs not sounding good on examination. Laboratory, Imaging, and Diagnostic Test Results - Date: SatSep 03 2024 - CBC: - Hemoglobin: High (previous result was very high, current result improved but still elevated) - White blood cell count: High - Eosinophils: High - Oxygen saturation: Low OTHER MEDICAL HISTORY/CONDITIONS: ASTHMA HYPERTENSION RIGHT KIDNEY MASS PARTIAL NEPHRECTOMY 12/2023 NASAL SURGERY HERNIA SURGERY 2016 LEFT KNEE SX 2014 FAMILY HISTORY: Father:?DENIES Mother:?DENIES Sibling:?DENIES Children: DENIES, HAS 2 SONS AND 1 DAUGHTER Cancer History:?RIGHT KIDNEY MASS REMOVED 12/2023 SOCIAL HISTORY: Occupational?History:?[employer] Education?Level:?College Graduate, 2 year degree Marital?Status:? Tobacco?Use?Years:?15 Tobacco Use:?STOPPED SMOKING 20 YEARS AGO, 1/2 PACK CIGARETTES PER DAY ETOH?Use:?OCCASIONAL?ALCOHOL Drug?Note:?DENIES Social History Note:?LIVES WITH AND KIDS MEDICATIONS: 1. albuterol - 90 mcg/actuation As directed 2. fexofenadine - 180 mg 1 tab Daily 3. levothyroxine - 50 mcg 1 tab every morning 4. lisinopril-hydrochlorothiazide - 20-25 mg 0.5 tab Daily 5. prednisone - 10 mg 1 tab Daily 6. Spiriva Respimat - 1.25 mcg/actuation 2 Puff(s) Daily 7. Symbicort - 160-4.5 mcg/actuation 2 Puff(s) Daily 8. Xhance - 93 mcg/actuation 2 spray As directed?Palabra Meds? Medications Last Reconciled by Obdulia Avendano MA on 12/30/2024 ALLERGIES: No Known Allergies REVIEW OF SYSTEMS: A complete 14-point review of systems was performed and is negative except as noted in interval history. PHYSICAL EXAMINATION:?[facility] PE? VITAL SIGNS: Temperature?99.4, B/P?126/81, Oxygen?Saturation?92% Weight?184?lbs (Change?since?12/22/24:?-3.2?lbs) PAIN: 0 - No pain ECOG Performance Status: 0 - Asymptomatic and fully active GENERAL APPEARANCE: Appears well, in no apparent distress, appropriately interactive. HEENT: Normocephalic, no temporal wasting, normal conjunctiva, no scleral icterus, normal hearing, lips without lesions, neck normal range of motion. CARDIOVASCULAR: Not assessed. PULMONARY: Normal respiratory effort, no respiratory distress or use of accessory muscles, speaking in full sentences, no tachypnea. EXTREMITIES: No pedal edema or cyanosis. SKIN: Normal skin appearance. NEUROLOGIC: Alert and oriented x4. PSHYCHIATRIC: Appropriate affect, mood normal, behavior normal, intact thought and speech. LABORATORY DATA: I have personally reviewed and interpreted each of the patient?s relevant lab tests, abnormal findings are below: Date 11/24/24 12/22/24 ??WHITE?BLOOD?COUNT?(Thou/mm3) 10.9?H 9.4 ??RED?BLOOD?COUNT?(Miln/mm3) 5.89 5.79 ??HEMOGLOBIN?(gm/dl) 16.2?H 16.1?H ??HEMATOCRIT?(%) 49.2 48.4 ??PLATELET?COUNT?(Thou/mm3) 357 298 ??NEUTROPHILS?%,?AUTO?(%) 60 57 ??LYMPH?%,?AUTO?(%) 25 26 ??NEUTROPHILS,?AUTO?(Thou/mm3) 6.6 5.3 ??GLUCOSE,RANDOM?(mg/dL) 89 100 ??BLOOD?UREA?NITROGEN?(mg/dL) 12 16 ??CREATININE?(mg/dL) 1.00 0.90 ??SODIUM?(mmol/L) 141 142 ??POTASSIUM?(mmol/L) 3.4 3.6 ??CHLORIDE?(mmol/L) 107 108?H ??CrCl?(CandG)?(ml/min) 81.70 89.67 ??AST/SGOT?(Unit/L) 21 21 ??ALT/SGPT?(Unit/L) 20 17 ??ALKALINE?PHOSPHATASE?(Unit/L) 64 53 ??BILIRUBIN,?TOTAL?(mg/dL) 0.7 1.1 ??PROTEIN?TOTAL?(gm/dl) 6.8 6.1 ??ALBUMIN,?SERUM?(gm/dl) 4.3 4.3 ??GLOBULIN?(gm/dl) 2.5 1.8?L ??ALBUMIN/GLOBULIN?RATIO 1.7 2.4?H ??CALCIUM,?SERUM?(mg/dL) 9.5 9.0 ??CALCIUM?SERUM?(CORRECTED)?(mg/dL) 9.5 9.0 ASSESSMENT/PLAN:?Miguelina Slaughter Assessment/Plan? Yolanda won, a patient with a history of cancer, presents with worsening respiratory symptoms including wheezing and low oxygen levels, exacerbated by allergies and possibly related to Keytruda immunotherapy. Assessment: Patient is currently receiving Keytruda immunotherapy for cancer treatment. There is concern that the immunotherapy may be contributing to hypersensitivity reactions and exacerbating respiratory symptoms. The treatment schedule and potential modifications are under consideration. Plan: - Continue Keytruda immunotherapy at current dose - Adjust treatment frequency to every 4 weeks (same dose) - Monitor closely for worsening of respiratory symptoms Respiratory distress Resolved CT scan and x-ray were clear Polycythemia Assessment: Patient presents with elevated hemoglobin and hematocrit levels, likely secondary to chronic hypoxia from respiratory issues. This compensatory mechanism is causing the blood to become too thick, which may further compromise oxygenation and increase risk of thrombosis. Continue to monitor Labs are stable ORDERS: Order # Description [id number] Follow Up Appointment [id number] CBC + Comprehensive Metabolic Panel + [facility] [id number] Lab Appointment [id number] Follow Up Appointment [id number] CBC + Comprehensive Metabolic Panel + [facility] [id number] Lab Appointment [id number] Follow Up Appointment [id number] CBC + Comprehensive Metabolic Panel + [facility] [id number] Lab Appointment [id number] Follow Up Appointment [id number] CBC + Comprehensive Metabolic Panel + [facility] [id number] Lab Appointment [id number] Follow Up Appointment [id number] CBC + Comprehensive Metabolic Panel + [facility] [id number] Lab Appointment [id number] Follow Up Appointment [id number] CBC + Comprehensive Metabolic Panel + [facility] [id number] Lab Appointment [id number] Follow Up Appointment [id number] CBC + Comprehensive Metabolic Panel + [facility] [id number] Lab Appointment [id number] Follow Up Appointment [id number] CBC + Comprehensive Metabolic Panel + [facility] [id number] Lab Appointment [id number] Follow Up Appointment [id number] CBC + Comprehensive Metabolic Panel + [facility] [id number] Lab Appointment [id number] Follow Up Appointment [id number] CBC + Comprehensive Metabolic Panel + [facility] [id number] Lab Appointment [id number] Follow Up Appointment [id number] CBC + Comprehensive Metabolic Panel + [facility] [id number] Lab Appointment [id number] Follow Up Appointment [id number] CBC + Comprehensive Metabolic Panel + [facility] [id number] Lab Appointment [id number] Follow Up Appointment [id number] CBC + Comprehensive Metabolic Panel + [facility] [id number] Lab Appointment [id number] Follow Up Appointment [id number] CBC + Comprehensive Metabolic Panel + [facility] [id number] Lab Appointment [id number] Follow Up Appointment [id number] CBC + Comprehensive Metabolic Panel + [facility] [id number] Lab Appointment [id number] Follow Up Appointment [id number] CBC + Comprehensive Metabolic Panel + [facility] [id number] Lab Appointment [id number] Follow Up Appointment MD [id number] CBC + Comprehensive Metabolic Panel + [facility] [id number] Lab Appointment [id number] Follow Up Appointment MD [id number] CBC + Comprehensive Metabolic Panel + [facility] [id number] Lab Appointment [id number] Follow Up Appointment MD [id number] CBC + Comprehensive Metabolic Panel + [facility] [id number] Lab Appointment [id number] Follow Up Appointment MD [id number] CBC + Comprehensive Metabolic Panel + [facility] [id number] Lab Appointment [id number] Follow Up Appointment MD [id number] CBC + Comprehensive Metabolic Panel + [facility] [id number] Lab Appointment [id number] Follow Up Appointment MD [id number] CBC + Comprehensive Metabolic Panel + [facility] [id number] Lab Appointment [id number] Follow Up Appointment MD [id number] CBC + Comprehensive Metabolic Panel + [facility] [id number] Lab Appointment [id number] Follow Up Appointment MD [id number] CBC + Comprehensive Metabolic Panel + [facility] [id number] Lab Appointment [id number] Follow Up Appointment MD [id number] CBC + Comprehensive Metabolic Panel + [facility] [id number] Lab Appointment [id number] Follow Up Appointment MD RETURN TO CLINIC: I reviewed the diagnosis, prognosis, and recommended treatment/procedure options with the patient (and/or their legal access services representative), including the potential benefits, risks, side effects and alternative therapies. We also discussed the option of no treatment and the possibility of clinical trial participation, if applicable. All questions were addressed, and they demonstrated understanding. They provided informed consent to proceed with the proposed plan of care. BILLING AND COMPLIANCE: I reviewed external records from providers outside my specialty as summarized above. I spent a total of 50 minutes on this patient?s care on the day of their visit excluding time spent related to any billed procedures. This time includes time spent with the patient as well as time spent documenting in the medical record, reviewing patients records and tests, obtaining history, placing orders, communicating with other healthcare professionals, counseling the patient, family or caregiver, and/or care coordination for the diagnoses above. Electronically Signed by: Zeferino Slaughter MD T: 3:32 PM CC: PCP: Erik Manzano Referring: Erik Manzano This document was completed utilizing speech recognition software. Grammatical errors, random word insertions, pronoun errors, and incomplete sentences are an occasional consequence of this system due to software limitations, ambient noise, and hardware issues. Any formal questions or concerns about the content, text or information contained within the body of this dictation should be directly addressed to the provider for clarification.
[2025-01-19 14:43] LABS: Basophils # (Auto) 0.1 Thou/mm3 (0.0-0.2); Basophils % (Auto) 1 % (0-2.5); Eosinophils # (Auto) 0.1 Thou/mm3 (0.0-0.5); Eosinophils % (Auto) 1 % (0-10); Hematocrit 49.7 % (41.0-53.0); Hemoglobin 15.9 g/dL (13.5-16.0); Immature Granulocytes Auto 0.03 Thou/mm3 (0.00-0.00); Lymphocytes # (Auto) 1.2 Thou/mm3 (1.0-4.8); Lymphocytes % (Auto) 9 % (10-50); Mean Corpuscular HGB Conc 32.0 g/dl (31.0-37.0); Mean Corpuscular Hemoglobin 26.8 pg (25.0-35.0); Mean Corpuscular Volume 84 fL (80-100); Monocytes # (Auto) 0.5 Thou/mm3 (0.0-0.8); Monocytes % (Auto) 4 % (0-12); Neutrophils # (Auto) 11.0 Thou/mm3 (1.8-7.7); Neutrophils % (Auto) 86 % (37-80); Nucleated Red Blood Cell # 0.00 Thou/mm3 (0.00-0.00); Nucleated Red Blood Cell % 0 /100 WBC (0); Platelet Count 367 Thou/mm3 (140-440); RDW Standard Deviation 43.0 fL (35.1-43.9); Red Blood Count 5.94 Miln/mm3 (4.50-5.90); White Blood Count 12.9 Thou/mm3 (3.8-10.6)
[2025-01-19 14:59] LABS: Alanine Aminotransferase 17 U/L (10-49); Albumin, Serum 4.5 gm/dL (3.5-5.0); Albumin/Globulin Ratio 2.1 (1.2-2.2); Alkaline Phosphatase 53 U/L (46-116); Anion Gap 9 (7-16); Aspartate Amino Transferase 17 U/L (0-34); BUN/Creatinine Ratio 11 Ratio (12-20); Bilirubin,Total 0.7 mg/dL (0.3-1.2); Blood Urea Nitrogen 11 mg/dL (9-23); Calcium 9.1 mg/dL (8.3-10.6); Calcium (Corrected) 9.1 mg/dL (8.5-10.1); Carbon Dioxide 27.7 mMol/L (20.0-31.0); Chloride 107 mMol/L (98-107); Creatinine (Component) 1.0 mg/dL (0.6-1.3); Free T4 (Free Thyroxine) 1.50 ng/dL (0.89-1.76); Globulin 2.1 gm/dL (2.3-3.5); Glucose 127 mg/dL (74-106); Osmolality,Calculated 288 (275-295); Potassium 3.5 mMol/L (3.4-5.1); Sodium 144 mMol/L (136-145); Thyroid Stimulating Hormone 1.62 uIU/mL (0.55-4.78); Total Protein 6.6 gm/dL (5.7-8.2); eGFR > 60 See Note
== END 2025-01-24 23:59 | disposition home or self-care (01) ==
LOC: SCTC 14:09
PROVIDERS: Visit Provider Internal Medicine Hematology & Oncology
DX: Z51.12 Encounter for antineoplastic immunotherapy (principal); C64.1 Malignant neoplasm of right kidney, except renal pelvis; D75.1 Secondary polycythemia; Z90.5 Acquired absence of kidney
CPT/HCPCS: 80053; 84439; 84443; 85025; 96413; 99212; J3490; J9271; G0463

== ENCOUNTER 2025-02-16 13:33 | Outpatient (RCR) | payer MEDICAID, SELFPAY ==
[2025-02-16 13:53] LABS: Basophils # (Auto) 0.1 Thou/mm3 (0.0-0.2); Basophils % (Auto) 1 % (0-2.5); Eosinophils # (Auto) 0.2 Thou/mm3 (0.0-0.5); Eosinophils % (Auto) 2 % (0-10); Hematocrit 50.2 % (41.0-53.0); Hemoglobin 16.3 g/dL (13.5-16.0); Immature Granulocytes Auto 0.02 Thou/mm3 (0.00-0.00); Lymphocytes # (Auto) 1.2 Thou/mm3 (1.0-4.8); Lymphocytes % (Auto) 12 % (10-50); Mean Corpuscular HGB Conc 32.5 g/dl (31.0-37.0); Mean Corpuscular Hemoglobin 26.9 pg (25.0-35.0); Mean Corpuscular Volume 83 fL (80-100); Monocytes # (Auto) 0.3 Thou/mm3 (0.0-0.8); Monocytes % (Auto) 3 % (0-12); Neutrophils # (Auto) 8.4 Thou/mm3 (1.8-7.7); Neutrophils % (Auto) 83 % (37-80); Nucleated Red Blood Cell # 0.00 Thou/mm3 (0.00-0.00); Nucleated Red Blood Cell % 0 /100 WBC (0); Platelet Count 376 Thou/mm3 (140-440); RDW Standard Deviation 42.4 fL (35.1-43.9); Red Blood Count 6.06 Miln/mm3 (4.50-5.90); White Blood Count 10.2 Thou/mm3 (3.8-10.6)
[2025-02-16 14:22] LABS: Alanine Aminotransferase 16 U/L (10-49); Albumin, Serum 4.6 gm/dL (3.5-5.0); Albumin/Globulin Ratio 1.9 (1.2-2.2); Alkaline Phosphatase 56 U/L (46-116); Anion Gap 10 (7-16); Aspartate Amino Transferase 18 U/L (0-34); BUN/Creatinine Ratio 14 Ratio (12-20); Bilirubin,Total 0.9 mg/dL (0.3-1.2); Blood Urea Nitrogen 13 mg/dL (9-23); Calcium 9.3 mg/dL (8.3-10.6); Calcium (Corrected) 9.3 mg/dL (8.5-10.1); Carbon Dioxide 26.4 mMol/L (20.0-31.0); Chloride 108 mMol/L (98-107); Creatinine (Component) 0.9 mg/dL (0.6-1.3); Free T4 (Free Thyroxine) 1.32 ng/dL (0.89-1.76); Globulin 2.4 gm/dL (2.3-3.5); Glucose 103 mg/dL (74-106); Osmolality,Calculated 286 (275-295); Potassium 3.9 mMol/L (3.4-5.1); Sodium 144 mMol/L (136-145); Thyroid Stimulating Hormone 2.11 uIU/mL (0.55-4.78); Total Protein 7.0 gm/dL (5.7-8.2); eGFR > 60 See Note
== END 2025-02-24 23:59 | disposition home or self-care (01) ==
LOC: SCTC 13:33
PROVIDERS: Visit Provider Internal Medicine Hematology & Oncology
DX: Z51.12 Encounter for antineoplastic immunotherapy (principal); C64.1 Malignant neoplasm of right kidney, except renal pelvis; D75.1 Secondary polycythemia
CPT/HCPCS: 36415; 80053; 84439; 84443; 85025; 96413; J3490; J9271